=== PATIENT | male | born 1935 | race Caucasian/White ===

== ENCOUNTER 2018-03-20 12:20 | Inpatient (IN) | payer MEDICARE, OTHER ==
[2018-03-20 12:27] VITALS: BMI 26.6
[2018-03-20] MEDS ORDERED: PANTOPRAZOLE SODIUM 40 MG in SODIUM CHLORIDE 100 ML IVPB ONE (12:57)
[2018-03-20] MEDS ORDERED: ONDANSETRON 4 MG/2 ML VIAL IVPUSH ONE (12:57)
[2018-03-20] MEDS ORDERED: ONDANSETRON 4 MG/2 ML VIAL ONE (13:12)
[2018-03-20] MEDS ORDERED: PANTOPRAZOLE SODIUM 40 MG/100 ML BAG IVPB ONE (13:12)
[2018-03-20 13:32] LABS: URINE APPEARANCE SLCLOUDY; URINE BILIRUBIN NEGATIVE (<2.0 mg/dL); URINE GLUCOSE (UA) NEGATIVE (NEGATIVE); URINE KETONE TRACE (NEGATIVE); URINE LEUK ESTERASE 1+ (NEGATIVE); URINE NITRITE NEGATIVE (NEGATIVE); URINE PROTEIN 2+ (NEGATIVE); URINE UROBILINOGEN NEGATIVE mg/dL (0.2-1.0)
[2018-03-20 13:51] LABS: ALBUMIN 4.2 g/dl (3.4-5.0); ALK PHOS 109 U/L (45-117); ANION GAP 8 MMOL/L (8-16); BLOOD UREA NITROGEN 23 mg/dL (7-18); CALCIUM 9.1 mg/dL (8.5-10.1); CHLORIDE 92 mmol/L (98-107); CO2 29 mmol/L (21-32); CREATININE 1.3 mg/dL (0.55-1.3); GLUCOSE,RANDOM 228 mg/dL (74-106); LIPASE 72 U/L (73-393); MAGNESIUM 3.2 mg/dL (1.8-2.4); POTASSIUM 4.8 mmol/L (3.5-5.1); SGOT/AST 12 U/L (15-37); SGPT/ALT 19 U/L (13-61); SODIUM 129 mmol/L (136-145); TOT PROT 8.1 g/dl (6.4-8.2)
[2018-03-20 13:55] LABS: URINE COLOR DK YELLOW
--- NOTE | 2018-03-20 13:55 | PDOC ---
History of Present Illness - General Chief Complaint: Pain, Acute Stated Complaint: SENT BY PCP Time Seen by Provider: 03/20/18 12:43 History Source: Patient Exam Limitations: No Limitations - History of Present Illness Travel History: No Initial Comments: 03/20/18 14:16 82-year-old male presents to the emergency room for evaluation of nausea and vomiting epigastric pain since Tuesday after having a glass of tequila which he did not drink. Patient denies fever, chills, chest pain, shortness of breath but states mild weakness to to decreased by mouth intake. Patient states history of diabetes and had a glucose of 160 this morning. Timing/Duration: reports: intermittent Quality: reports: mild, cramping Abdominal Pain Onset Location: reports: RUQ, epigastric Pain Radiation: reports: no radiation Aggravating Factors: improves with: None Alleviating Factors: improves with: None Past History - Travel Traveled outside of the country in the last 30 days: No Close contact w/someone who was outside of country & ill: No - Past Medical History Allergies/Adverse Reactions: Allergies Allergy/AdvReac Type Severity Reaction Status Date / Time No Known Drug Allergies Allergy Verified 10/12/11 14:45 Home Medications: Ambulatory Orders Aspirin Coated [Ecotrin -] 81 mg PO DAILY 09/28/11 Amlodipine Besylate 5 mg PO DAILY 04/18/14 Hydroxyurea 500 mg PO DAILY 04/18/14 Linaclotide [Linzess] 72 mcg PO DAILY 03/20/18 Metformin HCl [Glucophage] 500 mg PO BID 03/20/18 Tamsulosin HCl [Flomax] 0.4 mg PO DAILY 03/20/18 Anemia: No Asthma: No Cancer: No Cardiac Disorders: No CVA: No COPD: No CHF: No Dementia: No Diabetes: Yes GI Disorders: No Disorders: No HTN: Yes Hypercholesterolemia: Yes (Not currently on medication) Liver Disease: No Seizures: No Thyroid Disease: No Other medical history: blood disorder - Surgical History Abdominal Surgery: No Appendectomy: No Cardiac Surgery: No Cholecystectomy: No Lung Surgery: No Neurologic Surgery: No Orthopedic Surgery: No - Suicide/Smoking/Psychosocial Hx Verbal consent obtained for HIV testing: No Smoking History: Unknown if ever smoked Hx Alcohol Use: Yes (OCCASIONALLY) Drug/Substance Use Hx: No Substance Use Type: None Hx Substance Use Treatment: No Patient Lives Alone: No Lives with/in: son Review of Systems - Review of Systems Able to Perform ROS?: Yes Constitutional: No: Symptoms Reported HEENTM: No: Symptoms Reported Respiratory: No: Symptoms reported Cardiac (ROS): No: Symptoms Reported ABD/GI: Yes: Nausea, Vomiting, Abdominal cramping : No: Symptoms Reported Musculoskeletal: No: Symptoms Reported Integumentary: No: Symptoms Reported Neurological: No: Symptoms reported Endocrine: No: Symptoms Reported Hematologic/Lymphatic: No: Symptoms Reported *Physical Exam - Vital Signs Last Vital Signs Temp Pulse Resp BP Pulse Ox 98.3 F 100 H 22 H 143/63 95 03/20/18 12:26 03/20/18 12:26 03/20/18 12:26 03/20/18 12:26 03/20/18 12:26 - Physical Exam General Appearance: Yes: Nourished, Appropriately Dressed. No: Apparent Distress HEENT: positive: EOMI, SHAQUIL[place], TMs Normal, Pharynx Normal. negative: Pale Conjunctivae Neck: positive: Supple Respiratory/Chest: positive: Lungs Clear, Normal Breath Sounds. negative: Respiratory Distress, Accessory Muscle Use Cardiovascular: positive: Regular Rhythm, Tachycardia. negative: Murmur Gastrointestinal/Abdominal: positive: Soft, Tenderness (epigastric and right epigastric) Musculoskeletal: negative: CVA Tenderness Extremity: positive: Normal Capillary Refill. negative: Pedal Edema Integumentary: positive: Normal Color, Warm, Moist Neurologic: positive: Motor Strength 5/5 (ambulatory) Moderate Sedation - Procedure Monitoring Vital Signs: Procedure Monitoring Vital Signs Temperature 98.3 F 03/20/18 12:26 Pulse Rate 100 H 03/20/18 12:26 Respiratory Rate 22 H 03/20/18 12:26 Blood Pressure 143/63 03/20/18 12:26 O2 Sat by Pulse Oximetry (%) 95 03/20/18 12:26 ED Treatment Course - LABORATORY CBC & Chemistry Diagram: 03/23/18 06:40 03/23/18 06:40 - Medications Given in the ED: ED Medications Discontinued Medications Generic Name Dose Route Start Last Admin Trade Name Freq PRN Reason Stop Dose Admin Pantoprazole Sodium 40 mg/ 100 mls @ 200 mls/hr 03/20/18 12:57 03/20/18 13:21 Sodium Chloride IVPB 03/20/18 13:26 200 mls/hr ONCE ONE Administration Ondansetron HCl 4 mg 03/20/18 12:57 03/20/18 13:21 Zofran Injection IVPUSH 03/20/18 12:58 4 mg ONCE ONE Administration Medical Decision Making - Medical Decision Making 03/20/18 14:05 Chief complaint: Nausea and vomiting with upper abdominal pain after drinking tequila. Sent over from Dr. Iraheta's office for evaluation. Exam: Patient tender in the epigastric and right epigastric area no CVA tenderness. Tachycardic Plan: Urine, CBC, comp, lipase, Protonix, Zofran and IV fluids 03/20/18 14:39 Laboratory Tests 03/20/18 03/20/18 13:10 13:10 Sodium 129 L Potassium 4.8 Chloride 92 L Carbon Dioxide 29 Anion Gap 8 BUN 23 H Creatinine 1.3 Creat Clearance w eGFR 52.85 Random Glucose 228 H Calcium 9.1 Magnesium 3.2 H Total Bilirubin 1.0 AST 12 L ALT 19 Alkaline Phosphatase 109 Total Protein 8.1 Albumin 4.2 Lipase 72 L Urine Protein 2+ H Urine Ketones Trace H Urine Nitrite Negative Ur Leukocyte Esterase 1+ H Urine WBC (Auto) Pending Urine RBC (Auto) Pending 03/20/18 16:03 Laboratory Tests 03/20/18 03/20/18 13:10 13:10 WBC 25.9 H Hgb 14.7 Hct 44.4 RDW 16.1 H Plt Count 652 H Absolute Neuts (auto) 22.8 H Neutrophils % 87.7 H Lymphocytes % 3.1 L Urine WBC (Auto) 5 Urine RBC (Auto) 11 Ur Epithelial Cells Rare Urine Bacteria Rare Hyaline Casts 53 03/20/18 16:10 Ordered for blood culture, lactic acid, second bag of IV fluid. Vancomycin, Zosyn, along with IV Tylenol call placed to patient's primary care Dr. Iraheta and left message. Patient will need to be admitted Ultrasound shows a complex cyst within the right hepatic lobe measuring 2.5 x 1.4 with a thin septation. Gallbladder is adequately distended measuring 7.8 cm in sagittal length with diffuse thickening of its anterior wall measuring 1.5 cm in AP dimension adjacent to the fundus and intra-luminal stone in the region of the gallbladder neck measuring 1.2 cm. There is no Pericholecystic fluid present. 03/20/18 17:39 Chest x-ray shows coarse lung changes with some questionable atelectasis findings of the medial right base. *DC/Admit/Observation/Transfer Diagnosis at time of Disposition: Cholecystitis - Discharge Dispostion Decision to Admit order: Yes - Referrals - Patient Instructions - Post Discharge Activity
[2018-03-20] MEDS ORDERED: SODIUM CHLORIDE 1,000 ML IV STA ×2 (14:00→16:05)
[2018-03-20 15:07] LABS: EPI CELLS RARE /HPF (FEW); URINE BACTERIA RARE /hpf (NONE SEEN); URINE HYALINE CAST 53 /lpf; URINE MUCUS MANY
[2018-03-20 15:38] LABS: BASO % 0.1 % (0-2.0); EOS % 0.1 % (0-4.5); HEMATOCRIT 44.4 % (35.4-49); HEMOGLOBIN 14.7 GM/dL (11.7-16.9); LYMPH % 3.1 % (8-40); MCH 27.4 pg (25.7-33.7); MCHC 33.2 g/dl (32.0-35.9); MEAN CELL VOLUME 82.6 fl (80-96); MEAN PLT VOLUME 9.1 fl (7.5-11.1); NEUT % 87.7 % (42.8-82.8); PLATELET COUNT 652 K/MM3 (134-434); RBC 5.38 M/mm3 (4.00-5.60); RDW 16.1 % (11.9-15.9); WHITE BLOOD COUNT 25.9 K/mm3 (4.0-10.0)
[2018-03-20] MEDS ORDERED: VANCOMYCIN 1 GM in D5W (PRE-DOCKED) 1,000 MG/250 ML IVPB ONE (16:05)
[2018-03-20] MEDS ORDERED: ACETAMINOPHEN 1000 MG/100 ML VIAL (NON FORMULARY) IVPB ONE (16:09)
[2018-03-20] MEDS ORDERED: PIPERACILLIN/TAZOB 3.375 GM 3.375 GM in DEXTROSE 5%-WATER - 50 ML IVPB SCH (16:15)
[2018-03-20 16:31] LABS: VENOUS PC02 49.4 mmHg (38-52); VENOUS PH 7.37 (7.32-7.42); VENOUS PO2 20.5 mmHg (28-48)
[2018-03-20 16:31] LABS: PLATELET ESTIMATE INCREASED
[2018-03-20] MEDS ORDERED: PIPERACILLIN/TAZOB 3.375 GM 3.375 GM/50 ML BAG IVPB ONE (16:32)
[2018-03-20] MEDS ORDERED: VANCOMYCIN 1 GRAM (PRE-DOCKED) 1,000 MG/250 ML BAG IVPB ONE (16:32)
[2018-03-20] MEDS ORDERED: ACETAMINOPHEN INJECTION 100 ML IVPB ONE (16:32)
[2018-03-20 16:43] LABS: INR 1.23 (0.83-1.09); PROTHROMBIN TIME (PATIENT) 14.5 SEC (9.7-13.0)
[2018-03-20 16:46] LABS: ACTIVATED PTT 31.8 SECONDS (25.2-36.5)
--- NOTE | 2018-03-20 17:23 | CONSULT ---
Consult Consult Specialty:: Surgery - History of Present Illness Chief Complaint: abdominal pain History of Present Illness: 82-year-old male presents to the emergency room for evaluation of nausea and vomiting epigastric pain since Tuesday after having a glass of tequila. Patient denies fever, chills, chest pain, shortness of breath but states mild weakness to to decreased by mouth intake. Patient states he has history of diabetes and had a glucose of 160 this morning. Patient also states he has history of intermittent RUQ pain. - History Source History Provided By: Patient Limitations to Obtaining History: No Limitations - Past Medical History Cardio/Vascular: Yes: HTN - Alcohol/Substance Use Hx Alcohol Use: Yes (OCCASIONALLY) - Smoking History Smoking history: Unknown if ever smoked Home Medications - Allergies Allergies/Adverse Reactions: Allergies Allergy/AdvReac Type Severity Reaction Status Date / Time No Known Drug Allergies Allergy Verified 10/12/11 14:45 - Home Medications Home Medications: Ambulatory Orders Aspirin Coated [Ecotrin -] 81 mg PO DAILY 09/28/11 Amlodipine Besylate 5 mg PO DAILY 04/18/14 Hydroxyurea 500 mg PO DAILY 04/18/14 Linaclotide [Linzess] 72 mcg PO DAILY 03/20/18 Metformin HCl [Glucophage] 500 mg PO BID 03/20/18 Tamsulosin HCl [Flomax] 0.4 mg PO DAILY 03/20/18 Review of Systems - Review of Systems Cardiovascular: reports: No Symptoms Respiratory: reports: No Symptoms Gastrointestinal: reports: Abdominal Pain, Nausea Musculoskeletal: reports: No Symptoms Physical Exam Vital Signs: Vital Signs Temperature 99.6 F 03/20/18 16:41 Pulse Rate 94 H 03/20/18 16:41 Respiratory Rate 18 03/20/18 16:41 Blood Pressure 127/63 03/20/18 16:41 O2 Sat by Pulse Oximetry (%) 96 03/20/18 16:41 Constitutional: Yes: Well Nourished, No Distress Eyes: Yes: Conjunctiva Clear HENT: Yes: Normocephalic Neck: Yes: Supple Cardiovascular: Yes: Regular Rate and Rhythm Respiratory: Yes: CTA Bilaterally Gastrointestinal: Yes: Soft, Tenderness (RUQ) ...Rectal Exam: Yes: Deferred Extremities: Yes: WNL Neurological: Yes: Alert, Oriented Labs: CBC, BMP 03/20/18 13:10 03/20/18 13:10 Imaging - Results Ultrasound: Report Reviewed, Image Reviewed Problem List - Problems (1) Cholecystitis Assessment/Plan: LAPAROSCOPIC CHOLECYSTECTOMY in am Continue antibiotics Bowel rest DVT, GI prophylaxis Code(s): K81.9 - CHOLECYSTITIS, UNSPECIFIED
[2018-03-20] MEDS ORDERED: SODIUM CHLORIDE 1,000 ML IV SCH (18:45)
[2018-03-20] MEDS ORDERED: ACETAMINOPHEN 325 MG TABLET (FP) PO ONE (22:41)
[2018-03-20] MEDS ORDERED: ACETAMINOPHEN 325 MG TABLET (FP) ONE (22:51)
--- NOTE | 2018-03-21 02:22 | HP ---
Admitting History and Physical - Admission History of Present Illness: Pt is a 82 y/o male w/ PMH significant for HTN, diabetes and BPH. Pt presented to the ER bc of nausea, vomiting and epigastric pain since Tuesday. The abdominal pain is localized to epigastrium and RUQ. Pt does say that the pain is worse after eating. Pt denies any fever/chills. In the ER pt had abdokminal US wc showed acute cholecystitis. History Source: Patient - Past Medical History Cardiovascular: Yes: HTN Endocrine: Yes: Diabetes Mellitus - Smoking History Smoking history: Unknown if ever smoked Have you smoked in the past 12 months: No - Alcohol/Substance Use Hx Alcohol Use: Yes (OCCASIONALLY) Home Medications - Allergies Allergies/Adverse Reactions: Allergies Allergy/AdvReac Type Severity Reaction Status Date / Time No Known Drug Allergies Allergy Verified 10/12/11 14:45 - Home Medications Home Medications: Ambulatory Orders Aspirin Coated [Ecotrin -] 81 mg PO DAILY 09/28/11 Amlodipine Besylate 5 mg PO DAILY 04/18/14 Hydroxyurea 500 mg PO DAILY 04/18/14 Linaclotide [Linzess] 72 mcg PO DAILY 03/20/18 Metformin HCl [Glucophage] 500 mg PO BID 03/20/18 Tamsulosin HCl [Flomax] 0.4 mg PO DAILY 03/20/18 Family Disease History - Family Disease History Family History: Unremarkable Review of Systems - Review of Systems Constitutional: reports: Loss of Appetite, Weakness Neck: reports: No Symptoms Cardiovascular: reports: No Symptoms Respiratory: reports: No Symptoms Gastrointestinal: reports: Abdominal Pain, Nausea, Vomiting Physical Examination Vital Signs: Vital Signs Temperature 100.5 F H 03/20/18 22:46 Pulse Rate 69 03/20/18 22:46 Respiratory Rate 18 03/20/18 22:46 Blood Pressure 133/78 03/20/18 22:46 O2 Sat by Pulse Oximetry (%) 96 03/20/18 22:46 Constitutional: Yes: No Distress HENT: Yes: WNL Neck: Yes: WNL, Supple Cardiovascular: Yes: WNL, Regular Rate and Rhythm Respiratory: Yes: WNL, Regular, CTA Bilaterally Gastrointestinal: Yes: Other ((+) RUQ tenderness on palpation) Musculoskeletal: Yes: WNL Extremities: Yes: WNL Edema: No Neurological: Yes: WNL, Alert, Oriented ...Motor Strength: WNL Labs: CBC, BMP 03/20/18 13:10 03/20/18 13:10 Problem List - Problems (1) Abdominal pain Assessment/Plan: Due to acute cholecystitis Surgical consult No medical contraindication ofr surgery Cont IVF/NPO Cont IV zosyn/vanco Follow BC Monitor WBC ID consult Will also get cardio consult for cardiac clearance Code(s): R10.9 - UNSPECIFIED ABDOMINAL PAIN (2) Diabetes Assessment/Plan: Cont sliding scale w/ coverage Code(s): E11.9 - TYPE 2 DIABETES MELLITUS WITHOUT COMPLICATIONS (3) HTN (hypertension) Assessment/Plan: Cont norvasc Check echo Code(s): I10 - ESSENTIAL (PRIMARY) HYPERTENSION (4) BPH (benign prostatic hyperplasia) Assessment/Plan: Cont flomax Code(s): N40.0 - BENIGN PROSTATIC HYPERPLASIA WITHOUT LOWER URINRY TRACT SYMP
[2018-03-21] MEDS ORDERED: DEXTROSE 5%-0.45% SALINE 1,000 ML IV SCH (02:30)
[2018-03-21] MEDS ORDERED: MORPHINE SULFATE 2 MG/ML VIAL IVPUSH PRN ×2 (02:33→18:25)
[2018-03-21] MEDS ORDERED: ONDANSETRON 4 MG/2 ML VIAL IVPUSH PRN ×3 (02:34→18:25)
[2018-03-21] MEDS ORDERED: INSULIN (NOVOLOG) ASPART 100 UNITS/ML 10ML VIAL ONE (06:05)
[2018-03-21] MEDS: INSULIN SLIDING SCALE (NOVOLOG) 1 VIAL SQ SCH ×4 (06:37→22:44)
[2018-03-21] MEDS ORDERED: PT OWN MED DRAWER 7, Y5N ONE (07:38)
[2018-03-21 07:48] LABS: BASO % 0.1 % (0-2.0); EOS % 0.1 % (0-4.5); HEMATOCRIT 37.5 % (35.4-49); HEMOGLOBIN 12.3 GM/dL (11.7-16.9); LYMPH % 3.7 % (8-40); MCH 27.2 pg (25.7-33.7); MCHC 32.9 g/dl (32.0-35.9); MEAN CELL VOLUME 82.6 fl (80-96); MEAN PLT VOLUME 8.7 fl (7.5-11.1); MONO % 9.8 % (3.8-10.2); NEUT % 86.3 % (42.8-82.8); PLATELET COUNT 541 K/MM3 (134-434); RBC 4.54 M/mm3 (4.00-5.60); RDW 16.6 % (11.9-15.9); WHITE BLOOD COUNT 21.3 K/mm3 (4.0-10.0)
[2018-03-21 08:20] LABS: ALK PHOS 77 U/L (45-117); ANION GAP 8 MMOL/L (8-16); BILIRUBIN,TOTAL 0.7 mg/dL (0.2-1); BLOOD UREA NITROGEN 14 mg/dL (7-18); CALCIUM 8.3 mg/dL (8.5-10.1); CHLORIDE 104 mmol/L (98-107); CO2 25 mmol/L (21-32); CREATININE 0.8 mg/dL (0.55-1.3); GLUCOSE,RANDOM 167 mg/dL (74-106); POTASSIUM 4.5 mmol/L (3.5-5.1); SGOT/AST 7 U/L (15-37); SGPT/ALT 13 U/L (13-61); SODIUM 137 mmol/L (136-145)
[2018-03-21] MEDS ORDERED: TAMSULOSIN HCL 0.4 MG CAP PO SCH (08:30)
--- NOTE | 2018-03-21 09:11 | CON.CARD ---
Consult Consult Specialty:: Cardiology Referred by:: Dr. Zamora Reason for Consultation:: Preop Cardiac Evaluation - History of Present Illness Chief Complaint: Fever and abdominal pain History of Present Illness: 82M with PMHx HTN, DM, Thrombocytosis, CAD with remote hx of PCI as per my office colleague's office notes presents to ER with abdominal pain, fever, leukocytosis. Abdominal US showed cholelithiasis and gallbladder thickening felt to be c/w cholecystitis. Seen by general surgery, planned for lap sonia today. On cardiac ROS, denies exertional CP, palpitations or syncope. No CHF sx. Has chronic exertional dyspnea which has not changed in last year. Able to walk 4- 5 blocks without difficulty and able to walk up one flight of stairs. - History Source History Provided By: Patient, Medical Record - Past Medical History Cardio/Vascular: Yes: HTN Pulmonary: No: Asthma, Bronchitis, Cancer, COPD, O2 Dependent, Pneumonia, Previously Intubated, Pulmonary Embolus, Pulmonary Fibrosis, Sleep Apnea, Other Gastrointestinal: No: Ascites, Cancer, Constipation, Crohn's Disease, Diverticulitis, Diverticulosis, Esophageal Varices, Gastritis, GERD, GI Bleed, Hemorrhoids, Hiatal Hernia, Inflamatory Bowel Disease, Irritable Bowel Disease, Pancreatitis, Peptic Ulcer Disease, Ulcerative Colitis, Other Hepatobiliary: No: Cirrhosis, Cholelithiasis, Cholecystitis, Choledocholithiasis , Hepatitis A, Hepatitis B, Hepatitis C, Other Renal/: No: Renal Failure, Renal Inusuff, BPH, Cancer, Hematuria, Hemodialysis , Neurogenic Bladder, Renal Calculi, UTI, Other Heme/Onc: Yes: Other (Thrombocytosis. ) Infectious Disease: No: AIDS, C-Diff, Herpes Zoster, HIV, MRSA, STD's, Tuberculosis, VREF, Other Psych: No: Addictions, Anxiety, Bipolar, Depression, Panic, Psychosis, Schizophrenia, Other Musculoskeletal: No: Bursitis, Chronic low back pain, Hemiparesis, Hemiplegia, Osteoarthritis, Paraplegia, Other ENT: No: Allergic Rhinitis, Sinusitis, Other Endocrine: Yes: Diabetes Mellitus - Alcohol/Substance Use Hx Alcohol Use: Yes (OCCASIONALLY) - Smoking History Smoking history: Unknown if ever smoked Have you smoked in the past 12 months: No - Social History History of Recent Travel: No Home Medications - Allergies Allergies/Adverse Reactions: Allergies Allergy/AdvReac Type Severity Reaction Status Date / Time No Known Drug Allergies Allergy Verified 10/12/11 14:45 - Home Medications Home Medications: Ambulatory Orders Aspirin Coated [Ecotrin -] 81 mg PO DAILY 09/28/11 Amlodipine Besylate 5 mg PO DAILY 04/18/14 Hydroxyurea 500 mg PO DAILY 04/18/14 Linaclotide [Linzess] 72 mcg PO DAILY 03/20/18 Metformin HCl [Glucophage] 500 mg PO BID 03/20/18 Tamsulosin HCl [Flomax] 0.4 mg PO DAILY 03/20/18 Family Disease History - Family Disease History Family History: Unremarkable (no early CAD or SCD) Review of Systems Findings/Remarks: See HPI - Review of Systems Constitutional: reports: Fever Eyes: denies: No Symptoms, Blind Spots, Blurred Vision, Double Vision, Eye Pain , Floaters, Photophobia, Recent Change in Vision, Other HENT: denies: No Symptoms, Difficult Swallowing, Ear Discharge, Ear Pain, Epistaxis, Gingival Bleeding, Hearing Loss, Mouth Swelling, Nasal Congestion, Ocular Prosthesis, Throat Pain, Toothache, Ringing in Ears, Other Neck: denies: No Symptoms, Decreased ROM, Lumps, Pain on Movement, Stiffness, Swollen Glands, Tenderness, Other Cardiovascular: denies: No Symptoms, Chest Pain, Edema, Palpitations, Shortness of Breath, Other Respiratory: denies: No Symptoms, Cough, Exercise Intolerance, Hemoptysis, Orthopnea, PND, Snoring, SOB, SOB on Exertion, Wheezing, Other Gastrointestinal: reports: Abdominal Pain Genitourinary: denies: No Symptoms, Burning, Discharge, Dysuria, Flank Pain, Frequency, Hematuria, Incontinence, Lesions, Menses, Pain, Testicular Mass, Testicular Pain, Testicular Swelling, Urgency, Vaginal Bleeding, Other Breasts: denies: No Symptoms Reported, See HPI, Breast Implants, Discharge from Nipple, Lumps, Pain, Skin Changes, Other Musculoskeletal: denies: No Symptoms, Back Pain, Crepitus, Decreased ROM, Extremity Pain, Joint Pain, Joint Swelling, Muscle Pain, Muscle Cramps, Muscle Weakness, Other Integumentary: denies: No Symptoms, Blister, Bruising, Change in Color, Eczema, Erythema, Incision, Lesions, Lump, Pallor, Pruritis, Rash, Wound, Other Neurological: denies: No Symptoms, Change in LOC, Change in Speech, Confusion, Dizziness, Headache, Incoordination, Numbness, Parasthesia, Pre-Existing Deficit , Seizure, Syncope, Tremors, Unsteady Gait, Weakness, Other Endocrine: denies: No Symptoms, Excessive Sweating, Flushing, Increased Hunger, Increased Thirst, Intolerance to Cold, Intolerance to Heat, Unexplained Weight Gain, Unexplained Weight Loss, Other Hematology/Lymphatic: denies: No Symptoms, Easily Bruised, Excessive Bleeding, Swollen Glands, Other Psychiatric: denies: No Symptoms, Altered Sleep Pattern, Anxiety, Depression, Hallucinations, Panic, Paranoia, Suicidal, Other - Risk Factors Known Risk Factors: Yes: Diabetes Mellitus, Hypertension, Other (Chronic thrombocytosis/ myeloproliferative disorder on Hydrea) Vital Signs: Vital Signs Temperature 98.7 F 03/21/18 06:00 Pulse Rate 83 03/21/18 06:00 Respiratory Rate 18 03/21/18 06:00 Blood Pressure 118/57 L 03/21/18 06:00 O2 Sat by Pulse Oximetry (%) 96 03/21/18 02:16 Constitutional: Yes: No Distress Eyes: Yes: Conjunctiva Clear HENT: Yes: Atraumatic Respiratory: Yes: CTA Bilaterally Gastrointestinal: Yes: Soft Cardiovascular: Yes: Regular Rate and Rhythm JVD: No Carotid Bruit: No PMI: Non-Displaced Heart Sounds: Yes: S1, S2 (RRR, no murmurs) Edema: No Peripheral Pulses WNL: Yes Neurological: Yes: Alert, Oriented ...Motor Strength: WNL - Other Data Labs, Other Data: CBC, BMP 03/21/18 07:10 03/21/18 07:10 INR, PTT INR 1.23 (0.83-1.09) H 03/20/18 16:00 Troponin, BNP 03/20/18 16:20 Troponin I < 0.02 Troponin, BNP 03/20/18 16:20 Troponin I < 0.02 Microbiology Laboratory Tests 03/20/18 03/20/18 03/20/18 13:10 13:10 13:10 WBC 25.9 H Hgb 14.7 Hct 44.4 Plt Count 652 H Absolute Neuts (auto) 22.8 H Sodium Potassium BUN Creatinine POC Glucometer Calcium AST ALT Alkaline Phosphatase 109 Troponin I Lipase 72 L Urine Color Dk yellow Urine Appearance Slcloudy Urine Protein 2+ H Urine Glucose (UA) Negative Urine Ketones Trace H Urine Blood Negative Urine Nitrite Negative Urine Bilirubin Negative Urine Urobilinogen Negative Ur Leukocyte Esterase 1+ H Urine WBC (Auto) 5 Urine RBC (Auto) 11 03/20/18 03/21/18 03/21/18 16:20 06:33 07:10 WBC 21.3 H Hgb 12.3 Hct 37.5 D Plt Count 541 H Absolute Neuts (auto) 18.4 H Sodium Potassium BUN Creatinine POC Glucometer 159 Calcium AST ALT Alkaline Phosphatase Troponin I < 0.02 Lipase Urine Color Urine Appearance Urine Protein Urine Glucose (UA) Urine Ketones Urine Blood Urine Nitrite Urine Bilirubin Urine Urobilinogen Ur Leukocyte Esterase Urine WBC (Auto) Urine RBC (Auto) 03/21/18 07:10 WBC Hgb Hct Plt Count Absolute Neuts (auto) Sodium 137 Potassium 4.5 BUN 14 Creatinine 0.8 POC Glucometer Calcium 8.3 L AST 7 L ALT 13 Alkaline Phosphatase 77 Troponin I Lipase Urine Color Urine Appearance Urine Protein Urine Glucose (UA) Urine Ketones Urine Blood Urine Nitrite Urine Bilirubin Urine Urobilinogen Ur Leukocyte Esterase Urine WBC (Auto) Urine RBC (Auto) NSR 90bpm, no Q waves and no significant ECG changes Echo: Other (June 2016 (office): Mild MR, otherwise normal) Stress Echo: Other (ETT07/2015: 7 Minutes Jadiel- negative ETT. Nuclear stress 2013 7 minutes, nl perfusion, EF 54%) Ejection Fraction %: LVEF > or = 40 % Imaging - Results Chest X-ray: Report Reviewed, Image Reviewed Ultrasound: Report Reviewed EKG: Image Reviewed Problem List - Problems (1) Diabetes Code(s): E11.9 - TYPE 2 DIABETES MELLITUS WITHOUT COMPLICATIONS Qualifiers: Diabetes mellitus type: type 2 Diabetes mellitus complication status: without complication (2) Cholecystitis Code(s): K81.9 - CHOLECYSTITIS, UNSPECIFIED (3) Thrombocytosis Code(s): D47.3 - ESSENTIAL (HEMORRHAGIC) THROMBOCYTHEMIA (4) ASHD (arteriosclerotic heart disease) Code(s): I25.10 - ATHSCL HEART DISEASE OF [place] CORONARY ARTERY W/O ANG PCTRS (5) Abdominal pain Code(s): R10.9 - UNSPECIFIED ABDOMINAL PAIN Qualifiers: Abdominal location: right upper quadrant Qualified Code(s): R10.11 - Right upper quadrant pain (6) HTN (hypertension) Code(s): I10 - ESSENTIAL (PRIMARY) HYPERTENSION Qualifiers: Hypertension type: essential hypertension Qualified Code(s): I10 - Essential (primary) hypertension Assessment/Plan IMP: Abdominal pain, fever, imaging c/w acute cholecystitis DM Chronic thrombocytosis ASHD HTN REC: There are no absolute cardiac contraindications to lap sonia if recommended by surgery as this would be considered urgent in a patient with DM and cholecystitis. There is no aortic stenosis, no signs / sx of heart failure, he is in NSR with normal ECG and has no anginal symptoms at this time. May proceed to surgery without further delay for diagnostic testing, which will not change above recommendations. Advise: 1. Continue usual BP meds which may be taken with sip of water 2. Will need DVT prophylaxis and likely resumption of ASA and Hydrea post op with his hx of thrombocytosis. Will follow. Thank you.
[2018-03-21 09:54] LABS: ANISOCYTOSIS 0; MACROCYTOSIS 0; PLATELET ESTIMATE INCREASED
[2018-03-21] MEDS ORDERED: amLODIPine BESYLATE 5 MG TABLET (FP) PO SCH (10:00)
[2018-03-21] MEDS ORDERED: PIPERACILLIN/TAZOB 3.375 GM 3.375 GM in DEXTROSE 5%-WATER - 50 ML IVPB SCH ×2 (10:00→18:00)
[2018-03-21] MEDS ORDERED: VANCOMYCIN 1 GM in D5W (PRE-DOCKED) 1,000 MG/250 ML IVPB SCH ×2 (10:00→22:00)
[2018-03-21] MEDS ORDERED: DEXTROSE 5%-WATER - 50 ML IVPB ONE (10:15)
[2018-03-21] MEDS ORDERED: PIPERACILLIN/TAZOBACTAM 3.375 GM VIAL IVPB ONE (10:15)
--- NOTE | 2018-03-21 12:03 | ECHO ---
Name: GABRIEL MORAN Exam:Adult Echocardiogram Study Date: 03/21/2018 09:11 AM Age: 82 yrs Reason For Study: HTN MEDICAL CLEARANCE Height: 65 in Weight: 159 lb BSA: 1.8 m2 MMode/2D Measurements & Calculations IVSd: 0.92 cm Ao root diam: 3.4 cm LVIDd: 5.2 cm LA dimension: 3.5 cm LVIDs: 3.4 cm LVPWd: 0.86 cm EDV(Teich): 131.4 ml LVOT diam: 2.2 cm ESV(Teich): 48.6 ml TAPSE: 2.8 cm Doppler Measurements & Calculations MV E max marianne: 60.2 cm/sec Ao V2 max: 199.8 cm/sec MV A max marianne: 91.8 cm/sec Ao max P.0 mmHg MV E/A: 0.66 Ao V2 mean: 134.5 cm/sec MV dec time: 0.15 sec Ao mean P.0 mmHg Ao V2 VTI: 37.9 cm JAMIE(V,D): 2.6 cm2 LV V1 max P.3 mmHg MR max marianne: 259.0 cm/sec LV V1 max: 134.8 cm/sec MR max P.8 mmHg TR max marianne: 286.7 cm/sec PI end-d marianne: 126.2 cm/sec TR max P.0 mmHg Procedure A two-dimensional transthoracic echocardiogram with color flow and Doppler was performed. The patient was in normal sinus rhythm during the exam. Left Ventricle Left ventricular systolic function is normal. Ejection Fraction = 55-60%. E/A reversal consistent wit h but not diagnostic of poor LV compliance. Right Ventricle The right ventricle is grossly normal size. The right ventricular systolic function is grossly normal . Atria The left atrial size is normal. Right atrial size is normal. Mitral Valve There is mild mitral annular calcification. There is trace mitral regurgitation. Tricuspid Valve The tricuspid valve is normal. There is mild to moderate tricuspid regurgitation. Right ventricular s ystolic pressure is elevated at 30-40mmHg. Aortic Valve There is mild aortic sclerosis.;. The aortic valve is trileaflet. The aortic valve opens well. No hemodynamically significant valvular aortic stenosis. No aortic regurgitation is present. Pulmonic Valve The pulmonic valve is not well seen, but is grossly normal. Trace pulmonic valvular regurgitation. Great Vessels The aortic root is normal size. Pericardium/Pleura There is no pericardial effusion. Interpretation Summary Left ventricular systolic function is normal. E/A reversal consistent with but not diagnostic of poor LV compliance The right ventricular systolic function is grossly normal. There is mild mitral annular calcification. There is trace mitral regurgitation. There is mild to moderate tricuspid regurgitation. Right ventricular systolic pressure is elevated at 30-40mmHg. There is mild aortic sclerosis.; No hemodynamically significant valvular aortic stenosis. Trace pulmonic valvular regurgitation. There is no pericardial effusion. MD Lamont Hayes 03/21/2018 12:02 PM
--- NOTE | 2018-03-21 12:13 | EKG ---
Test Reason : Blood Pressure : / mmHG Vent. Rate : 089 BPM Atrial Rate : 089 BPM P-R Int : 156 ms QRS Dur : 088 ms QT Int : 312 ms P-R-T Axes : 062 -26 015 degrees QTc Int : 379 ms NORMAL SINUS RHYTHM NORMAL ECG Confirmed by MD ROXANA, GRABIEL ([id number]) on 03/21/2018 12:13:41 PM Referred By: ROSLYN LANTIGUA,[facility] Confirmed By:GRABIEL SCHMIDT MD
--- NOTE | 2018-03-21 12:17 | EKG ---
Test Reason : Blood Pressure : / mmHG Vent. Rate : 090 BPM Atrial Rate : 090 BPM P-R Int : 162 ms QRS Dur : 084 ms QT Int : 336 ms P-R-T Axes : 053 -13 044 degrees QTc Int : 411 ms NORMAL SINUS RHYTHM NORMAL ECG Confirmed by MD ROXANA, GRABIEL ([id number]) on 03/21/2018 12:16:53 PM Referred By: Confirmed By:GRABIEL SCHMIDT MD
--- NOTE | 2018-03-21 13:50 | CON.ID ---
Consult Consult Specialty:: infectious diseases Referred by:: Reason for Consultation:: abd pain - History of Present Illness Chief Complaint: abd pain ruq History of Present Illness: 82 y/o male w/ PMH significant for HTN, diabetes and BPH. Pt presented to the ER bc of nausea, vomiting and epigastric pain since Tuesday. The abdominal pain is localized to epigastrium and RUQ. Pt does say that the pain is worse after eating. Pt denies any fever/chills. In the ER pt had abdominal US wc showed acute cholecystitis. patient was seen by surgery and patient is being taken to or for choleycystectomy other [place] patient is doing well though he does c/o of pain in the abdomen - History Source History Provided By: Patient, Family Member Limitations to Obtaining History: Language Barrier - Past Medical History Cardio/Vascular: Yes: HTN Pulmonary: No: Asthma, Bronchitis, Cancer, COPD, O2 Dependent, Pneumonia, Previously Intubated, Pulmonary Embolus, Pulmonary Fibrosis, Sleep Apnea, Other Gastrointestinal: No: Ascites, Cancer, Constipation, Crohn's Disease, Diverticulitis, Diverticulosis, Esophageal Varices, Gastritis, GERD, GI Bleed, Hemorrhoids, Hiatal Hernia, Inflamatory Bowel Disease, Irritable Bowel Disease, Pancreatitis, Peptic Ulcer Disease, Ulcerative Colitis, Other Hepatobiliary: No: Cirrhosis, Cholelithiasis, Cholecystitis, Choledocholithiasis , Hepatitis A, Hepatitis B, Hepatitis C, Other Renal/: No: Renal Failure, Renal Inusuff, BPH, Cancer, Hematuria, Hemodialysis , Neurogenic Bladder, Renal Calculi, UTI, Other Infectious Disease: No: AIDS, C-Diff, Herpes Zoster, HIV, MRSA, STD's, Tuberculosis, VREF, Other Psych: No: Addictions, Anxiety, Bipolar, Depression, Panic, Psychosis, Schizophrenia, Other Musculoskeletal: No: Bursitis, Chronic low back pain, Hemiparesis, Hemiplegia, Osteoarthritis, Paraplegia, Other ENT: No: Allergic Rhinitis, Sinusitis, Other Endocrine: Yes: Diabetes Mellitus - Alcohol/Substance Use Hx Alcohol Use: Yes (OCCASIONALLY) - Smoking History Smoking history: Unknown if ever smoked Have you smoked in the past 12 months: No - Social History History of Recent Travel: No Home Medications - Allergies Allergies/Adverse Reactions: Allergies Allergy/AdvReac Type Severity Reaction Status Date / Time No Known Drug Allergies Allergy Verified 10/12/11 14:45 - Home Medications Home Medications: Ambulatory Orders RX: Aspirin Coated [Ecotrin -] 81 mg PO DAILY 09/28/11 Amlodipine Besylate 5 mg PO DAILY 04/18/14 Hydroxyurea 500 mg PO DAILY 04/18/14 Linaclotide [Linzess] 72 mcg PO DAILY 03/20/18 Metformin HCl [Glucophage] 500 mg PO BID 03/20/18 Tamsulosin HCl [Flomax] 0.4 mg PO DAILY 03/20/18 Review of Systems - Review of Systems Constitutional: reports: No Symptoms Eyes: reports: No Symptoms HENT: reports: No Symptoms Neck: reports: No Symptoms Cardiovascular: reports: No Symptoms Respiratory: reports: No Symptoms Gastrointestinal: reports: Abdominal Pain (ruq) Musculoskeletal: reports: No Symptoms Integumentary: reports: No Symptoms Neurological: reports: No Symptoms Endocrine: reports: No Symptoms Hematology/Lymphatic: reports: No Symptoms Psychiatric: reports: No Symptoms Physical Exam Vital Signs: Vital Signs Temperature 98.7 F 03/21/18 06:00 Pulse Rate 83 03/21/18 06:00 Respiratory Rate 18 03/21/18 06:00 Blood Pressure 118/57 L 03/21/18 06:00 O2 Sat by Pulse Oximetry (%) 96 03/21/18 02:16 Constitutional: Yes: Well Nourished, No Distress, Calm, Obese Cardiovascular: Yes: Regular Rate and Rhythm Respiratory: Yes: Regular, CTA Bilaterally Gastrointestinal: Yes: Soft, Hypoactive Bowel Sounds, Tenderness Musculoskeletal: Yes: WNL Extremities: Yes: WNL Neurological: Yes: Alert, Oriented Psychiatric: Yes: Alert, Oriented Labs: CBC, BMP 03/21/18 07:10 03/21/18 07:10 Imaging - Results Chest X-ray: Report Reviewed, Image Reviewed Ultrasound: Report Reviewed, Image Reviewed Assessment/Plan Problem List - Problems (1) Abdominal pain Code(s): R10.9 - UNSPECIFIED ABDOMINAL PAIN Qualifiers: Abdominal location: right upper quadrant Qualified Code(s): R10.11 - Right upper quadrant pain (2) Diabetes Code(s): E11.9 - TYPE 2 DIABETES MELLITUS WITHOUT COMPLICATIONS Qualifiers: Diabetes mellitus type: type 2 Diabetes mellitus complication status: without complication (3) HTN (hypertension) Code(s): I10 - ESSENTIAL (PRIMARY) HYPERTENSION Qualifiers: Hypertension type: essential hypertension Qualified Code(s): I10 - Essential (primary) hypertension (4) BPH (benign prostatic hyperplasia) Code(s): N40.0 - BENIGN PROSTATIC HYPERPLASIA WITHOUT LOWER URINRY TRACT SYMP (5) S/P laparoscopic cholecystectomy Code(s): Z90.49 - ACQUIRED ABSENCE OF OTHER SPECIFIED PARTS OF DIGESTIVE TRACT plan will start patient on abx await for surgery once surgery is done will discuss the findings with surgeon rest as per the team
[2018-03-21] MEDS ORDERED: LACTATED RINGERS SOLUTION 1,000 ML IV SCH (14:30)
[2018-03-21] MEDS ORDERED: ROCURONIUM BROMIDE 50 MG/5 ML VIAL ONE (14:48)
[2018-03-21] MEDS ORDERED: PROPOFOL 20 ML ONE (14:48)
[2018-03-21] MEDS ORDERED: DESFLURANE GAS 240 ML BOTTLE IH ONE (15:11)
[2018-03-21] MEDS ORDERED: DEXAMETHASONE SOD PHOSPHATE 4 MG/1 ML VIAL ONE (15:22)
[2018-03-21] MEDS ORDERED: ceFAZolin SODIUM 1 GM VIAL ONE (15:22)
[2018-03-21] MEDS ORDERED: LIDOCAINE HCL/PF 2% SDV 5ML VIAL ONE (15:22)
[2018-03-21] MEDS ORDERED: SODIUM CHLORIDE 0.9% P/F 10 ML VIAL IJ ONE (15:22)
[2018-03-21] MEDS ORDERED: AMPICILLIN NA/SULBACTAM NA 1.5 GM VIAL IVPB ONE (16:12)
[2018-03-21] MEDS ORDERED: ePHEDrine SULFATE 50 MG/1 ML AMPULE ONE (16:15)
[2018-03-21] MEDS ORDERED: BUPIVACAINE HCL/PF (5 MG/ML) 30 ML VIAL IJ ONE (16:45)
[2018-03-21] MEDS ORDERED: METOPROLOL TARTRATE 5 MG/5 ML VIAL ONE (16:47)
[2018-03-21] MEDS ORDERED: NEOSTIGMINE METHYLSULFATE 0.5 MG/ML - 10 ML MDV ONE (17:24)
[2018-03-21] MEDS ORDERED: GLYCOPYRROLATE 0.2 MG/1 ML VIAL ONE (17:24)
[2018-03-21] MEDS ORDERED: KETOROLAC TROMETHAMINE 30 MG/1 ML VIAL ONE (17:26)
--- NOTE | 2018-03-21 17:46 | OP ---
Operative Note - Note: Operative Date: 03/21/18 Pre-Operative Diagnosis: Acute cholecystitis Operation: Laparoscopic cholecystectomy Findings: Inflamed gallbladder with purulent bile on needle decompression questionable CBD stone at cbd/cystic duct junction Post-Operative Diagnosis: Other (Empyema of the gallbladder, r/o choledocholithiasis) Surgeon: Lazaro Gibbons Ranch Hand Supervisor: Chelsie Pelletier Anesthesia: General Specimens Removed: gallbladder Estimated Blood Loss (mls): 50 Drains & Tubes with Location: FAWN round drain at Trujillo's pouch Operative Report Dictated: Yes
[2018-03-21] MEDS: ACETAMINOPHEN 1000 MG/100 ML VIAL (NON FORMULARY) IVPB ONE ×2 (18:00→22:39)
[2018-03-21] MEDS ORDERED: oxyCODONE HCL 5 MG TABLET PO PRN ×2 (18:32)
--- NOTE | 2018-03-21 18:53 | OP ---
DATE OF OPERATION: 03/21/2018 PROCEDURE: Laparoscopic cholecystectomy. PREOPERATIVE DIAGNOSIS: Acute cholecystitis. POSTOPERATIVE DIAGNOSIS: Empyema of the gallbladder, rule out choledocholithiasis. SURGEON: Lazaro Gibbons MD SWING MANAGER: ALEXANDER Ortiz ANESTHESIA: General endotracheal. FINDINGS AND PROCEDURE: This is an 82-year-old male who presents with 2-day history of abdominal pain at the right upper quadrant and epigastric area associated with nausea and vomiting. Patient was initially seen at the PMD's office and was sent to the emergency department for further evaluation. On physical examination, the patient has right upper quadrant tenderness and positive Parker's sign. Preoperative ultrasound revealed a distended gallbladder with thickened lopez and 1-cm stone impacted in the gallbladder neck. The patient also had a white blood cell count of 25,000. The patient was admitted and started on antibiotics and was advised cholecystectomy. Consent was obtained after discussing the risks, benefits, and alternatives to the procedure. Patient was brought to the operating room and placed in the supine position. General endotracheal anesthesia was administered. The abdomen was prepped and draped in the usual sterile fashion. Using 0.5% Marcaine, local anesthesia was administered in the proposed incision sites. The peritoneal cavity was entered using the Optiview technique via a 5-mm umbilical incision, using a 5-mm 0-degree scope, inserted in the 5-mm optical port. Pneumoperitoneum was established. The patient was then placed in reverse Trendelenburg, left-side down position. At this point, the patient was noted to have colonic ileus and inflammatory adhesions of the omentum to the posterior abdominal wall of the right upper quadrant area. This was bluntly dissected using the 5-mm laparoscope to at least give a view of the subxiphoid region. An 11- mm port was inserted at the subxiphoid region under direct vision. Further taking down of the posterior abdominal wall adhesions was done by blunt dissection using the suction laminating machine operator instrument. Two 5-mm ports were placed at the right subcostal region ; 1 at the midclavicular line and the anterior axillary line. The omental adhesion to the gallbladder was bluntly dissected using the suction irrigation instrument and a distended, erythematous, inflamed gallbladder was exposed. Needle aspiration to decompress the gallbladder was done. About 50 mL of purulent fluid was aspirated. This was sent to the lab for culture and sensitivity studies. The gallbladder fundus was grasped and retracted superiorly and the infundibulum was grasped and retracted laterally. The edematous visceral peritoneum of the triangle of Calot was scored using the hook dissector connected to Bovie cautery towards the gallbladder bed on both sides of the gallbladder. Further dissection using blunt dissection using the peanut dissector was done to expose the cystic duct and the cystic artery. Careful dissection of the inflammatory fibrotic tissue was done using hook dissector connected to Bovie cautery to skeletonize the cystic duct. The cystic duct was initially clipped and was noted to be rigid. A questionable, firm, intraluminal structure, which was presumed to be a common duct stone lodged in the junction between the cystic duct and the common bile duct was noted. An attempt to dislodge the structure proved to be unsuccessful. It was then decided to clip the cystic duct at 4 points followed by transection, leaving 3 clips at the cystic duct stump. The cystic artery was likewise clipped at 3 points followed by transection, leaving 2 clips at the cystic artery stump. The gallbladder was dissected from its bed in an antegrade fashion using the hook dissector connected to monopolar cautery. This was then placed in an endobag and extracted via the subxiphoid incision, which was lengthened to accommodate the edematous stone. The gallbladder was palpated and was noted to have a 0.5-cm stone. In Trujillo's pouch, the right hepatic gutter was then copiously irrigated with sterile normal saline until the return was clear. A round Donovan-Hernandez drain, number 15, was deployed into Trujillo's pouch and then into the gallbladder bed and exited the anterior axillary line port. This was then connected to bulb suction. The pneumoperitoneum was evacuated and the ports were removed. The wounds were closed with Vicryl 0 suture to the fascia of the subxiphoid incision and subcuticular Biosyn 4-0 suture for the skin. The wound closure was reinforced with Dermabond. Patient was successfully extubated and transferred to the postanesthesia care unit in satisfactory condition. ESTIMATED BLOOD LOSS: About 50 mL. WOUND CLASSIFICATION: Contaminated. The patient received 1.5 g of Unasyn prior to the start of the proceduure. Diamond [id number] MTDD
--- NOTE | 2018-03-21 18:54 | SURG ---
Surgery Senior Interactive Producer Note Senior Interactive Producer: Chelsie Pelletier PA-C Date of Service: 03/21/18 Diagnosis: Acute cholecystitis Procedure: Laparoscopic cholecystectomy I was present for the entirety of the operative procedure. For further detail, please refer to operative report. Visit type - Case Type Case Type: ED Admission - Emergency Emergency Visit: Yes ED Registration Date: 03/20/18 Care time: The patient presented to the Emergency Department on the above date and was hospitalized for further evaluation of their emergent condition. - New patient This patient is new to me today: Yes Date on this admission: 03/21/18
--- NOTE | 2018-03-21 19:16 | PN ---
Progress Note, Physician History of Present Illness: Pt tolerated surgery - Current Medication List Current Medications: Active Medications Acetaminophen (Tylenol -) 650 mg PO Q6H PRN PRN Reason: FEVER Amlodipine Besylate (Norvasc -) 5 mg PO DAILY [facility] Fentanyl (Sublimaze Injection -) 25 mcg IVPUSH Q5M PRN PRN Reason: PAIN-PACU ORDER X 4 DOSES ONLY Stop: 03/22/18 04:00 Heparin Sodium (Porcine) (Heparin -) 5,000 unit SQ TID [facility] Hydroxyurea (Hydrea -) 500 mg PO DAILY [facility] Lactated Ringer's (Lactated Ringers Solution) 1,000 mls @ 100 mls/hr IV ASDIR JESSICA Piperacillin Sod/Tazobactam (Sod 3.375 gm/ Dextrose) 50 mls @ 100 mls/hr IVPB Q8H-IV JESSICA; Protocol Insulin Aspart (Novolog Vial Sliding Scale -) 1 vial SQ ACHS [facility]; Protocol Metformin HCl (Glucophage -) 500 mg PO BID [facility] Morphine Sulfate (Morphine Sulfate) 2 mg IVPUSH Q6H PRN PRN Reason: breakthrough Non-Formulary Medication (Linaclotide [Linzess]) 72 mcg PO DAILY [facility] Ondansetron HCl (Zofran Injection) 4 mg IVPUSH Q6H PRN PRN Reason: NAUSEA AND/OR VOMITING Oxycodone HCl (Roxicodone -) 5 mg PO Q4H PRN PRN Reason: PAIN LEVEL 1-5 Oxycodone HCl (Roxicodone -) 10 mg PO Q4H PRN PRN Reason: PAIN LEVEL 6-10 Tamsulosin HCl (Flomax -) 0.4 mg PO DAILY@0830 [facility] - Objective Vital Signs: Vital Signs Temperature 100.4 F H 03/21/18 17:49 Pulse Rate 88 03/21/18 17:49 Respiratory Rate 20 03/21/18 17:49 Blood Pressure 117/70 03/21/18 17:49 O2 Sat by Pulse Oximetry (%) 91 L 03/21/18 17:49 Neck: Yes: WNL, Supple Cardiovascular: Yes: WNL, Regular Rate and Rhythm Respiratory: Yes: WNL, Regular, CTA Bilaterally Gastrointestinal: Yes: Other ((+) incisional tenderness) Labs: CBC, BMP 03/21/18 07:10 03/21/18 07:10 INR, PTT INR 1.23 (0.83-1.09) H 03/20/18 16:00 Problem List - Problems (1) Abdominal pain Assessment/Plan: Due to acute cholecystitis S/P lap choley Cont IV zosyn/vanco Advance diet as per surgery Follow BC Code(s): R10.9 - UNSPECIFIED ABDOMINAL PAIN Qualifiers: Abdominal location: right upper quadrant Qualified Code(s): R10.11 - Right upper quadrant pain (2) Diabetes Assessment/Plan: Cont sliding scale w/ coverage Code(s): E11.9 - TYPE 2 DIABETES MELLITUS WITHOUT COMPLICATIONS Qualifiers: Diabetes mellitus type: type 2 Diabetes mellitus complication status: without complication (3) HTN (hypertension) Assessment/Plan: Cont norvasc Code(s): I10 - ESSENTIAL (PRIMARY) HYPERTENSION Qualifiers: Hypertension type: essential hypertension Qualified Code(s): I10 - Essential (primary) hypertension (4) BPH (benign prostatic hyperplasia) Code(s): N40.0 - BENIGN PROSTATIC HYPERPLASIA WITHOUT LOWER URINRY TRACT SYMP
[2018-03-21] MEDS: LACTATED RINGERS SOLUTION 1,000 ML IV SCH (22:39)
[2018-03-21] MEDS: HEPARIN NA (PORCINE) 5,000 UNITS/ML 1ML VIAL SQ SCH (22:40)
[2018-03-21] MEDS: metFORMIN HCL 500 MG TABLET (FP) PO SCH (22:42)
[2018-03-22] MEDS: HEPARIN NA (PORCINE) 5,000 UNITS/ML 1ML VIAL SQ SCH ×3 (06:15→22:15)
[2018-03-22] MEDS: LACTATED RINGERS SOLUTION 1,000 ML IV SCH (06:47)
[2018-03-22] MEDS: INSULIN SLIDING SCALE (NOVOLOG) 1 VIAL SQ SCH ×4 (06:48→22:15)
[2018-03-22 08:19] LABS: ALBUMIN 2.7 g/dl (3.4-5.0); ALK PHOS 273 U/L (45-117); ANION GAP 9 MMOL/L (8-16); BILIRUBIN,DIRECT 3.6 mg/dL (0.0-0.2); BILIRUBIN,TOTAL 4.1 mg/dL (0.2-1); BLOOD UREA NITROGEN 17 mg/dL (7-18); CALCIUM 8.2 mg/dL (8.5-10.1); CHLORIDE 97 mmol/L (98-107); CO2 25 mmol/L (21-32); CREATININE 0.9 mg/dL (0.55-1.3); GLUCOSE,RANDOM 252 mg/dL (74-106); POTASSIUM 5.1 mmol/L (3.5-5.1); SGOT/AST 89 U/L (15-37); SGPT/ALT 143 U/L (13-61); SODIUM 131 mmol/L (136-145); TOT PROT 5.7 g/dl (6.4-8.2)
[2018-03-22 08:41] LABS: BASO % 0.1 % (0-2.0); HEMATOCRIT 37.3 % (35.4-49); HEMOGLOBIN 12.4 GM/dL (11.7-16.9); LYMPH % 1.8 % (8-40); MCH 27.6 pg (25.7-33.7); MCHC 33.3 g/dl (32.0-35.9); MEAN CELL VOLUME 82.8 fl (80-96); MEAN PLT VOLUME 9.2 fl (7.5-11.1); MONO % 8.6 % (3.8-10.2); NEUT % 89.5 % (42.8-82.8); PLATELET COUNT 563 K/MM3 (134-434); RDW 16.3 % (11.9-15.9); WHITE BLOOD COUNT 19.8 K/mm3 (4.0-10.0)
--- NOTE | 2018-03-22 08:44 | PN ---
Progress Note, Physician Chief Complaint: tolerate lap sonia well Denies CP but c/o "phlegm in throat" - Current Medication List Current Medications: Active Medications Acetaminophen (Tylenol -) 650 mg PO Q6H PRN PRN Reason: FEVER Amlodipine Besylate (Norvasc -) 5 mg PO DAILY [facility] Aspirin (Ecotrin -) 81 mg PO DAILY [facility] Heparin Sodium (Porcine) (Heparin -) 5,000 unit SQ TID [facility] Last Admin: 03/22/18 06:15 Dose: Not Given Hydroxyurea (Hydrea -) 500 mg PO DAILY [facility] Lactated Ringer's (Lactated Ringers Solution) 1,000 mls @ 100 mls/hr IV ASDIR [facility] Last Admin: 03/22/18 06:47 Dose: 100 mls/hr Piperacillin Sod/Tazobactam (Sod 3.375 gm/ Dextrose) 50 mls @ 100 mls/hr IVPB Q8H-IV [facility]; Protocol Insulin Aspart (Novolog Vial Sliding Scale -) 1 vial SQ ACHS [facility]; Protocol Last Admin: 03/22/18 06:48 Dose: 6 units Metformin HCl (Glucophage -) 500 mg PO BID [facility] Last Admin: 03/21/18 22:42 Dose: 500 mg Morphine Sulfate (Morphine Sulfate) 2 mg IVPUSH Q6H PRN PRN Reason: breakthrough Non-Formulary Medication (Linaclotide [Linzess]) 72 mcg PO DAILY [facility] Ondansetron HCl (Zofran Injection) 4 mg IVPUSH Q6H PRN PRN Reason: NAUSEA AND/OR VOMITING Oxycodone HCl (Roxicodone -) 5 mg PO Q4H PRN PRN Reason: PAIN LEVEL 1-5 Oxycodone HCl (Roxicodone -) 10 mg PO Q4H PRN PRN Reason: PAIN LEVEL 6-10 Tamsulosin HCl (Flomax -) 0.4 mg PO DAILY@0830 [facility] - Objective Vital Signs: Vital Signs Temperature 98.6 F 03/22/18 06:00 Pulse Rate 77 03/22/18 06:00 Respiratory Rate 20 03/22/18 06:00 Blood Pressure 120/66 03/22/18 06:00 O2 Sat by Pulse Oximetry (%) 93 L 03/21/18 21:00 Constitutional: Yes: No Distress Eyes: Yes: Conjunctiva Clear Cardiovascular: Yes: Regular Rate and Rhythm Respiratory: Yes: CTA Bilaterally Gastrointestinal: Yes: Soft (no rebound or guarding.) Edema: No Neurological: Yes: Alert, Oriented ...Motor Strength: WNL Labs: CBC, BMP 03/22/18 06:30 INR, PTT INR 1.23 (0.83-1.09) H 03/20/18 16:00 Microbiology 03/20/18 16:00 Blood - Peripheral Venous Blood Culture - Preliminary NO GROWTH OBTAINED AFTER 24 HOURS, INCUBATION TO CONTINUE FOR 4 DAYS. 03/20/18 16:00 Blood - Peripheral Venous Blood Culture - Preliminary NO GROWTH OBTAINED AFTER 24 HOURS, INCUBATION TO CONTINUE FOR 4 DAYS. Laboratory Tests 03/22/18 03/22/18 06:30 06:30 WBC Pending Hgb Pending Plt Count Pending Sodium 131 L Potassium 5.1 Creatinine 0.9 AST 89 H ALT 143 H Alkaline Phosphatase 273 H Problem List - Problems (1) Diabetes Code(s): E11.9 - TYPE 2 DIABETES MELLITUS WITHOUT COMPLICATIONS Qualifiers: Diabetes mellitus type: type 2 Diabetes mellitus complication status: without complication (2) Cholecystitis Code(s): K81.9 - CHOLECYSTITIS, UNSPECIFIED (3) Thrombocytosis Code(s): D47.3 - ESSENTIAL (HEMORRHAGIC) THROMBOCYTHEMIA (4) ASHD (arteriosclerotic heart disease) Code(s): I25.10 - ATHSCL HEART DISEASE OF [place] CORONARY ARTERY W/O ANG PCTRS (5) Abdominal pain Code(s): R10.9 - UNSPECIFIED ABDOMINAL PAIN Qualifiers: Abdominal location: right upper quadrant Qualified Code(s): R10.11 - Right upper quadrant pain (6) HTN (hypertension) Code(s): I10 - ESSENTIAL (PRIMARY) HYPERTENSION Qualifiers: Hypertension type: essential hypertension Qualified Code(s): I10 - Essential (primary) hypertension Assessment/Plan IMP: Abdominal pain, fever, imaging c/w acute cholecystitis s/p lap sonia POD #1 DM Chronic thrombocytosis ASHD HTN REC: Tolerated surgery well: BP well controlled. 1. ASA and Hydrea resumed. 2. Portable CXR today 3. DVT prophylaxis
[2018-03-22] MEDS ORDERED: PIPERACILLIN/TAZOBACTAM 3.375 GM VIAL IVPB ONE ×2 (09:25→17:16)
[2018-03-22] MEDS ORDERED: DEXTROSE 5%-WATER - 50 ML IVPB ONE ×2 (09:25→17:16)
--- NOTE | 2018-03-22 09:27 | PN ---
Progress Note (short form) - Note Progress Note: surgery POD#1 laparoscopic cholecystectomy patient seen and examined at bedside. Patient is tolerating his clears but states he feels "full". He has not been OOB yet, but he is voiding and pain is controlled. He denies any chest pain, SOB , N/V, fever or chills Vital Signs Temp 98.6 F 03/22/18 06:00 Pulse 77 03/22/18 06:00 Resp 20 03/22/18 06:00 BP 120/66 03/22/18 06:00 Pulse Ox 93 L 03/21/18 21:00 Intake & Output 03/21/18 03/21/18 03/22/18 11:59 23:59 11:59 Intake Total 450 1700 1200 Output Total 250 300 330 Balance 200 1400 870 Intake: IV 450 1000 1000 D5-1/2Ns - 1,000 ml @ 75 450 mls/hr IV ASDIR JESSICA Rx#: [id number] Lactated Ringers Solution 1000 1,000 ml @ 100 mls/hr IV ASDIR JESSICA Rx#: [id number] Oral 0 700 200 Output: Drainage 50 30 Right Abdomen 30 Urine 250 200 300 Void 250 200 300 Estimated Blood Loss 50 Other: Voiding Method Toilet Urinal Urinal # Unmeasured Voids Void 1 1 1 Bowel Movement No No CBC, BMP 03/22/18 06:30 03/22/18 06:30 PE: A&Ox3, NAD Unlabored resp on RA ABD: Obese, distended with mild TTP throughout appropriate to status. Incisions c/d/i with drain output at 30cc overnight of SS discharge. LE: comapartments soft, supple and non-tender with +2 DP pulses Problem List - Problems (1) S/P laparoscopic cholecystectomy Assessment/Plan: POD #1 Laparoscopic Cholecystectomy (empyema) LFTs elevated. Patient stable and comfortable 1) f/u MRCP this morning, r/o gallstone in CBD 2) OOB with assist, ambulate and up to chair for meals, will mitigate gas. 3) Continue DVT prophylaxis with SQ heparin TID 4) IV ABX per ID Code(s): Z90.49 - ACQUIRED ABSENCE OF OTHER SPECIFIED PARTS OF DIGESTIVE TRACT
[2018-03-22] MEDS: metFORMIN HCL 500 MG TABLET (FP) PO SCH ×2 (09:32→22:15)
[2018-03-22] MEDS: ASPIRIN COATED 81 MG TABLET.EC PO SCH (09:32)
[2018-03-22] MEDS: PIPERACILLIN/TAZOB 3.375 GM 3.375 GM in DEXTROSE 5%-WATER - 50 ML IVPB SCH ×2 (09:33→17:23)
[2018-03-22] MEDS: TAMSULOSIN HCL 0.4 MG CAP PO SCH (09:33)
[2018-03-22] MEDS: HYDROXYUREA 500 MG CAPSULE PO SCH (09:33)
[2018-03-22] MEDS: amLODIPine BESYLATE 5 MG TABLET (FP) PO SCH (09:33)
[2018-03-22] MEDS ORDERED: PIPERACILLIN/TAZOB 3.375 GM 3.375 GM in DEXTROSE 5%-WATER - 50 ML IVPB SCH (10:00)
[2018-03-22] MEDS ORDERED: VANCOMYCIN 1 GM in D5W (PRE-DOCKED) 1,000 MG/250 ML IVPB SCH (10:00)
[2018-03-22] MEDS ORDERED: PATIENT'S OWN MEDICATION (NON-FORMULARY) (Linaclotide [Linzess] 72 MCG) PO SCH (10:00)
[2018-03-22 10:52] LABS: ANISOCYTOSIS 0; MACROCYTOSIS 0; PLATELET ESTIMATE NORMAL
--- NOTE | 2018-03-22 14:06 | PN ---
Progress Note, Physician History of Present Illness: patient post op says the pain has improved drain in place - Current Medication List Current Medications: Active Medications Acetaminophen (Tylenol -) 650 mg PO Q6H PRN PRN Reason: FEVER Amlodipine Besylate (Norvasc -) 5 mg PO DAILY [facility] Last Admin: 03/22/18 09:33 Dose: 5 mg Aspirin (Ecotrin -) 81 mg PO DAILY [facility] Last Admin: 03/22/18 09:32 Dose: 81 mg Heparin Sodium (Porcine) (Heparin -) 5,000 unit SQ TID [facility] Last Admin: 03/22/18 06:15 Dose: Not Given Hydroxyurea (Hydrea -) 500 mg PO DAILY [facility] Last Admin: 03/22/18 09:33 Dose: 500 mg Lactated Ringer's (Lactated Ringers Solution) 1,000 mls @ 100 mls/hr IV ASDIR [facility] Last Admin: 03/22/18 06:47 Dose: 100 mls/hr Piperacillin Sod/Tazobactam (Sod 3.375 gm/ Dextrose) 50 mls @ 100 mls/hr IVPB Q8H-IV [facility]; Protocol Last Admin: 03/22/18 09:33 Dose: 100 mls/hr Insulin Aspart (Novolog Vial Sliding Scale -) 1 vial SQ ACHS [facility]; Protocol Last Admin: 03/22/18 11:57 Dose: 4 units Metformin HCl (Glucophage -) 500 mg PO BID [facility] Last Admin: 03/22/18 09:32 Dose: 500 mg Morphine Sulfate (Morphine Sulfate) 2 mg IVPUSH Q6H PRN PRN Reason: breakthrough Non-Formulary Medication (Linaclotide [Linzess]) 72 mcg PO DAILY [facility] Ondansetron HCl (Zofran Injection) 4 mg IVPUSH Q6H PRN PRN Reason: NAUSEA AND/OR VOMITING Oxycodone HCl (Roxicodone -) 5 mg PO Q4H PRN PRN Reason: PAIN LEVEL 1-5 Oxycodone HCl (Roxicodone -) 10 mg PO Q4H PRN PRN Reason: PAIN LEVEL 6-10 Tamsulosin HCl (Flomax -) 0.4 mg PO DAILY@0830 [facility] Last Admin: 03/22/18 09:33 Dose: 0.4 mg - Objective Vital Signs: Vital Signs Temperature 98.0 F 03/22/18 10:00 Pulse Rate 83 03/22/18 10:00 Respiratory Rate 20 03/22/18 10:00 Blood Pressure 143/70 03/22/18 10:00 O2 Sat by Pulse Oximetry (%) 93 L 03/21/18 21:00 Constitutional: Yes: No Distress, Calm Cardiovascular: Yes: Regular Rate and Rhythm Respiratory: Yes: Regular, CTA Bilaterally Gastrointestinal: Yes: Soft, Hypoactive Bowel Sounds Musculoskeletal: Yes: WNL Extremities: Yes: WNL Neurological: Yes: Alert, Oriented Psychiatric: Yes: Alert, Oriented Labs: CBC, BMP 03/22/18 06:30 03/22/18 06:30 INR, PTT INR 1.23 (0.83-1.09) H 03/20/18 16:00 Assessment/Plan Problem List - Problems (1) Abdominal pain Code(s): R10.9 - UNSPECIFIED ABDOMINAL PAIN Qualifiers: Abdominal location: right upper quadrant Qualified Code(s): R10.11 - Right upper quadrant pain (2) Diabetes Code(s): E11.9 - TYPE 2 DIABETES MELLITUS WITHOUT COMPLICATIONS Qualifiers: Diabetes mellitus type: type 2 Diabetes mellitus complication status: without complication (3) HTN (hypertension) Code(s): I10 - ESSENTIAL (PRIMARY) HYPERTENSION Qualifiers: Hypertension type: essential hypertension Qualified Code(s): I10 - Essential (primary) hypertension (4) BPH (benign prostatic hyperplasia) Code(s): N40.0 - BENIGN PROSTATIC HYPERPLASIA WITHOUT LOWER URINRY TRACT SYMP (5) S/P laparoscopic cholecystectomy Code(s): Z90.49 - ACQUIRED ABSENCE OF OTHER SPECIFIED PARTS OF DIGESTIVE TRACT plan continue abx await for further work up op note noted await for cx reports rest as per the team
--- NOTE | 2018-03-22 15:23 | CONSULT ---
Consult Consult Specialty:: Hematology-Oncology Referred by:: Dr. Zamora Reason for Consultation:: History of Myeloproliferative disorder on hydrea - History of Present Illness Chief Complaint: Mid-epigastric pain with nausea and emesis. Dx acute cholecystitis - History Source History Provided By: Patient, Medical Record Limitations to Obtaining History: No Limitations - Past Medical History Cardio/Vascular: Yes: HTN Pulmonary: No: Asthma, Bronchitis, Cancer, COPD, O2 Dependent, Pneumonia, Previously Intubated, Pulmonary Embolus, Pulmonary Fibrosis, Sleep Apnea, Other Gastrointestinal: No: Ascites, Cancer, Constipation, Crohn's Disease, Diverticulitis, Diverticulosis, Esophageal Varices, Gastritis, GERD, GI Bleed, Hemorrhoids, Hiatal Hernia, Inflamatory Bowel Disease, Irritable Bowel Disease, Pancreatitis, Peptic Ulcer Disease, Ulcerative Colitis, Other Hepatobiliary: No: Cirrhosis, Cholelithiasis, Cholecystitis, Choledocholithiasis , Hepatitis A, Hepatitis B, Hepatitis C, Other Renal/: No: Renal Failure, Renal Inusuff, BPH, Cancer, Hematuria, Hemodialysis , Neurogenic Bladder, Renal Calculi, UTI, Other Heme/Onc: Yes: 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.) Infectious Disease: No: AIDS, C-Diff, Herpes Zoster, HIV, MRSA, STD's, Tuberculosis, VREF, Other Psych: No: Addictions, Anxiety, Bipolar, Depression, Panic, Psychosis, Schizophrenia, Other Musculoskeletal: No: Bursitis, Chronic low back pain, Hemiparesis, Hemiplegia, Osteoarthritis, Paraplegia, Other ENT: No: Allergic Rhinitis, Sinusitis, Other Endocrine: Yes: Diabetes Mellitus - Alcohol/Substance Use Hx Alcohol Use: Yes (OCCASIONALLY) - Smoking History Smoking history: Unknown if ever smoked Have you smoked in the past 12 months: No - Social History History of Recent Travel: No Home Medications - Allergies Allergies/Adverse Reactions: Allergies Allergy/AdvReac Type Severity Reaction Status Date / Time No Known Drug Allergies Allergy Verified 10/12/11 14:45 - Home Medications Home Medications: Ambulatory Orders Aspirin Coated [Ecotrin -] 81 mg PO DAILY 09/28/11 Amlodipine Besylate 5 mg PO DAILY 04/18/14 Hydroxyurea 500 mg PO DAILY 04/18/14 Linaclotide [Linzess] 72 mcg PO DAILY 03/20/18 Metformin HCl [Glucophage] 500 mg PO BID 03/20/18 Tamsulosin HCl [Flomax] 0.4 mg PO DAILY 03/20/18 Family Disease History - Family Disease History Family Disease History: Heart Disease: Mother, Other: Father (stroke ) Review of Systems - Review of Systems Constitutional: reports: Loss of Appetite Eyes: reports: Other (wears glasses). denies: Double Vision, Eye Pain HENT: denies: Difficult Swallowing, Epistaxis, Nasal Congestion, Throat Pain Neck: denies: Decreased ROM, Lumps, Pain on Movement, Stiffness, Swollen Glands Cardiovascular: denies: Chest Pain, Shortness of Breath Respiratory: denies: Exercise Intolerance, SOB, SOB on Exertion Gastrointestinal: reports: Abdominal Pain, Bloating, Constipation, Nausea, Vomiting. denies: Vomiting Blood Genitourinary: denies: Dysuria, Frequency Musculoskeletal: denies: Back Pain Integumentary: denies: Erythema, Pruritis Neurological: reports: No Symptoms, Seizure Hematology/Lymphatic: denies: Easily Bruised, Excessive Bleeding, Swollen Glands Psychiatric: reports: No Symptoms Physical Exam Vital Signs: Vital Signs Temperature 97.9 F 03/22/18 14:52 Pulse Rate 82 03/22/18 14:52 Respiratory Rate 20 03/22/18 14:52 Blood Pressure 138/72 03/22/18 14:52 O2 Sat by Pulse Oximetry (%) 93 L 03/21/18 21:00 Constitutional: Yes: Mild Distress Eyes: Yes: PERRL. No: Diplopia, Ptosis, Sclera Icterus HENT: Yes: Atraumatic, Normocephalic, Other (dentulous). No: Epistaxis, Hoarseness, Thrush, Tonsillar Exudate Neck: Yes: Supple, Trachea Midline. No: Lymphadenopathy, Tenderness, Thyromegaly Cardiovascular: Yes: Regular Rate and Rhythm Respiratory: Yes: Diminished Gastrointestinal: Yes: Distention, Other (s/p surgery ;J-P drain). No: Hepatomegaly, Rectal Bleeding, Splenomegaly, Tenderness Renal/: No: CVA Tenderness - Left, CVA Tenderness - Right Musculoskeletal: No: Back Pain Extremities: No: Calf Tenderness, Cyanosis Edema: No Integumentary: No: Jaundice Wound/Incision: Yes: Clean/Dry Neurological: Yes: WNL ...Motor Strength: WNL Psychiatric: Yes: WNL Labs: CBC, BMP 03/22/18 06:30 03/22/18 06:30 Problem List - Problems (1) S/P laparoscopic cholecystectomy Assessment/Plan: Day1 post op For MRI to evaluate for stones; Constipated with abdominal distension Code(s): Z90.49 - ACQUIRED ABSENCE OF OTHER SPECIFIED PARTS OF DIGESTIVE TRACT (2) Thrombocytosis Assessment/Plan: Patient with increased risk of thrombotic events in light of age ( > 60) and BRISA -2 positivity , and s/p abdominal surgery. Would consider post hospital continuation of DVT prophylaxis for 2-4 weeks with lovenox. Continue with hydrea at 500 mg daily . Ideally platelets < 400K Code(s): D47.3 - ESSENTIAL (HEMORRHAGIC) THROMBOCYTHEMIA
[2018-03-22] MEDS ORDERED: MAGNESIUM HYDROX 2400MG/30ML ORAL SUSPENSION 30 ML CUP PO PRN (17:00)
[2018-03-22] MEDS ORDERED: BISACODYL 10 MG SUPP.RECT PR ONE (17:02)
[2018-03-22] MEDS ORDERED: DOCUSATE SODIUM 100 MG CAPSULE (FP) PO SCH (22:00)
--- NOTE | 2018-03-22 23:28 | PN ---
Progress Note, Physician History of Present Illness: Pt passing flatulence - Current Medication List Current Medications: Active Medications Acetaminophen (Tylenol -) 650 mg PO Q6H PRN PRN Reason: FEVER Amlodipine Besylate (Norvasc -) 5 mg PO DAILY [facility] Last Admin: 03/22/18 09:33 Dose: 5 mg Aspirin (Ecotrin -) 81 mg PO DAILY [facility] Last Admin: 03/22/18 09:32 Dose: 81 mg Heparin Sodium (Porcine) (Heparin -) 5,000 unit SQ TID [facility] Last Admin: 03/22/18 14:00 Dose: 5,000 unit Hydroxyurea (Hydrea -) 500 mg PO DAILY [facility] Last Admin: 03/22/18 09:33 Dose: 500 mg Lactated Ringer's (Lactated Ringers Solution) 1,000 mls @ 100 mls/hr IV ASDIR [facility] Last Admin: 03/22/18 06:47 Dose: 100 mls/hr Piperacillin Sod/Tazobactam (Sod 3.375 gm/ Dextrose) 50 mls @ 100 mls/hr IVPB Q8H-IV [facility]; Protocol Last Admin: 03/22/18 17:23 Dose: 100 mls/hr Insulin Aspart (Novolog Vial Sliding Scale -) 1 vial SQ ACHS [facility]; Protocol Last Admin: 03/22/18 17:23 Dose: 2 units Metformin HCl (Glucophage -) 500 mg PO BID [facility] Last Admin: 03/22/18 09:32 Dose: 500 mg Morphine Sulfate (Morphine Sulfate) 2 mg IVPUSH Q6H PRN PRN Reason: breakthrough Non-Formulary Medication (Linaclotide [Linzess]) 72 mcg PO DAILY [facility] Ondansetron HCl (Zofran Injection) 4 mg IVPUSH Q6H PRN PRN Reason: NAUSEA AND/OR VOMITING Oxycodone HCl (Roxicodone -) 5 mg PO Q4H PRN PRN Reason: PAIN LEVEL 1-5 Oxycodone HCl (Roxicodone -) 10 mg PO Q4H PRN PRN Reason: PAIN LEVEL 6-10 Tamsulosin HCl (Flomax -) 0.4 mg PO DAILY@0830 [facility] Last Admin: 03/22/18 09:33 Dose: 0.4 mg - Objective Vital Signs: Vital Signs Temperature 98.5 F 03/22/18 18:00 Pulse Rate 89 03/22/18 18:00 Respiratory Rate 20 03/22/18 18:00 Blood Pressure 145/68 03/22/18 18:00 O2 Sat by Pulse Oximetry (%) 94 L 03/22/18 09:00 HENT: Yes: WNL Neck: Yes: WNL, Supple Cardiovascular: Yes: WNL, Regular Rate and Rhythm Respiratory: Yes: WNL, Regular, CTA Bilaterally Gastrointestinal: Yes: Normal Bowel Sounds, Soft, Other ((+) incisional tenderness on palpation (+) sangrinous drainage in FAWN tube) Labs: CBC, BMP 03/22/18 06:30 03/22/18 06:30 INR, PTT INR 1.23 (0.83-1.09) H 03/20/18 16:00 Problem List - Problems (1) Elevated LFTs Assessment/Plan: Check MRI abdomen Cont to trend LFT's Code(s): R94.5 - ABNORMAL RESULTS OF LIVER FUNCTION STUDIES (2) Abdominal pain Assessment/Plan: Due to acute cholecystitis S/P lap choley Cont IV zosyn WBC slowly decreasing Advance diet as per surgery Follow BC Code(s): R10.9 - UNSPECIFIED ABDOMINAL PAIN Qualifiers: Abdominal location: right upper quadrant Qualified Code(s): R10.11 - Right upper quadrant pain (3) Diabetes Assessment/Plan: Cont sliding scale w/ coverage Code(s): E11.9 - TYPE 2 DIABETES MELLITUS WITHOUT COMPLICATIONS Qualifiers: Diabetes mellitus type: type 2 Diabetes mellitus complication status: without complication (4) Thrombocytosis Assessment/Plan: Cont hydroxyurea Cont AC w/ lovenox for 2-4 weeks post-op as per heme Code(s): D47.3 - ESSENTIAL (HEMORRHAGIC) THROMBOCYTHEMIA (5) HTN (hypertension) Assessment/Plan: Cont norvasc Code(s): I10 - ESSENTIAL (PRIMARY) HYPERTENSION Qualifiers: Hypertension type: essential hypertension Qualified Code(s): I10 - Essential (primary) hypertension (6) BPH (benign prostatic hyperplasia) Assessment/Plan: Cont flomax Code(s): N40.0 - BENIGN PROSTATIC HYPERPLASIA WITHOUT LOWER URINRY TRACT SYMP
[2018-03-23] MEDS ORDERED: PIPERACILLIN/TAZOBACTAM 3.375 GM VIAL IVPB ONE ×3 (00:43→17:28)
[2018-03-23] MEDS ORDERED: DEXTROSE 5%-WATER - 50 ML IVPB ONE ×3 (00:43→17:28)
[2018-03-23] MEDS: PIPERACILLIN/TAZOB 3.375 GM 3.375 GM in DEXTROSE 5%-WATER - 50 ML IVPB SCH ×3 (02:14→18:51)
[2018-03-23] MEDS: metFORMIN HCL 500 MG TABLET (FP) PO SCH ×2 (06:34→17:46)
[2018-03-23] MEDS: INSULIN SLIDING SCALE (NOVOLOG) 1 VIAL SQ SCH ×4 (06:37→21:57)
[2018-03-23 07:46] LABS: BASO % 0.1 % (0-2.0); EOS % 0.5 % (0-4.5); HEMATOCRIT 37.2 % (35.4-49); HEMOGLOBIN 12.3 GM/dL (11.7-16.9); LYMPH % 5.2 % (8-40); MCH 27.2 pg (25.7-33.7); MCHC 33.2 g/dl (32.0-35.9); MONO % 10.8 % (3.8-10.2); NEUT % 83.4 % (42.8-82.8); PLATELET COUNT 600 K/MM3 (134-434); RBC 4.53 M/mm3 (4.00-5.60); RDW 16.1 % (11.9-15.9)
[2018-03-23 08:16] LABS: ALBUMIN 2.5 g/dl (3.4-5.0); ALK PHOS 205 U/L (45-117); ANION GAP 5 MMOL/L (8-16); BLOOD UREA NITROGEN 12 mg/dL (7-18); CALCIUM 7.8 mg/dL (8.5-10.1); CHLORIDE 100 mmol/L (98-107); CO2 29 mmol/L (21-32); CREATININE 0.7 mg/dL (0.55-1.3); GLUCOSE,RANDOM 142 mg/dL (74-106); POTASSIUM 4.7 mmol/L (3.5-5.1); SGOT/AST 37 U/L (15-37); SGPT/ALT 94 U/L (13-61); SODIUM 134 mmol/L (136-145); TOT PROT 5.6 g/dl (6.4-8.2)
--- NOTE | 2018-03-23 08:26 | PN ---
Progress Note (short form) - Note Progress Note: surgery POD#2 laparoscopic cholecystectomy patient seen and examined at bedside. Patient is tolerating his clears but states he feels "full". He has been OOB to bathroom onlyt, he is voiding and passing gas but has not had a BM yet. pain is controlled. He denies any chest pain, SOB, N/V, fever or chills Vital Signs Temp 99.2 F 03/23/18 06:00 Pulse 81 03/23/18 06:00 Resp 20 03/23/18 06:00 BP 131/66 03/23/18 06:00 Pulse Ox 94 L 03/22/18 21:00 Intake & Output 03/22/18 03/22/18 03/23/18 11:59 23:59 11:59 Intake Total 1620 2050 Output Total 580 1370 15 Balance 1040 680 -15 Intake: IV 1000 1000 Lactated Ringers Solution 1000 1000 1,000 ml @ 100 mls/hr IV ASDIR JESSICA Rx#: [id number] IVPB 100 Oral 620 950 Output: Drainage 30 20 15 Right Abdomen 30 20 15 Urine 550 1350 Void 550 1350 Other: Voiding Method Toilet Toilet Toilet # Unmeasured Voids Void 1 1 2 Bowel Movement No No No CBC, BMP 03/23/18 06:40 03/23/18 06:40 PE: A&Ox3, NAD Unlabored resp on RA ABD: Obese, distended with mild TTP throughout appropriate to status. Incisions c/d/i with drain output at 30cc overnight of SS discharge. LE: comapartments soft, supple and non-tender with +2 DP pulses Problem List - Problems (1) S/P laparoscopic cholecystectomy Code(s): Z90.49 - ACQUIRED ABSENCE OF OTHER SPECIFIED PARTS OF DIGESTIVE TRACT
--- NOTE | 2018-03-23 08:44 | PN ---
Progress Note, Physician Chief Complaint: seen and examined No CP or SOB CXR yest no acute path - Current Medication List Current Medications: Active Medications Acetaminophen (Tylenol -) 650 mg PO Q6H PRN PRN Reason: FEVER Amlodipine Besylate (Norvasc -) 5 mg PO DAILY [facility] Last Admin: 03/22/18 09:33 Dose: 5 mg Aspirin (Ecotrin -) 81 mg PO DAILY [facility] Last Admin: 03/22/18 09:32 Dose: 81 mg Enoxaparin Sodium (Lovenox -) 40 mg SQ DAILY [facility] Hydroxyurea (Hydrea -) 500 mg PO DAILY [facility] Last Admin: 03/22/18 09:33 Dose: 500 mg Piperacillin Sod/Tazobactam (Sod 3.375 gm/ Dextrose) 50 mls @ 100 mls/hr IVPB Q8H-IV [facility]; Protocol Last Admin: 03/23/18 02:14 Dose: 100 mls/hr Insulin Aspart (Novolog Vial Sliding Scale -) 1 vial SQ ACHS [facility]; Protocol Last Admin: 03/23/18 06:37 Dose: Not Given Metformin HCl (Glucophage -) 500 mg PO BIDAC [facility] Last Admin: 03/23/18 06:34 Dose: 500 mg Morphine Sulfate (Morphine Sulfate) 2 mg IVPUSH Q6H PRN PRN Reason: breakthrough Non-Formulary Medication (Linaclotide [Linzess]) 72 mcg PO DAILY [facility] Ondansetron HCl (Zofran Injection) 4 mg IVPUSH Q6H PRN PRN Reason: NAUSEA AND/OR VOMITING Oxycodone HCl (Roxicodone -) 5 mg PO Q4H PRN PRN Reason: PAIN LEVEL 1-5 Oxycodone HCl (Roxicodone -) 10 mg PO Q4H PRN PRN Reason: PAIN LEVEL 6-10 Last Admin: 03/23/18 06:34 Dose: 10 mg Tamsulosin HCl (Flomax -) 0.4 mg PO DAILY@0830 [facility] Last Admin: 03/22/18 09:33 Dose: 0.4 mg - Objective Vital Signs: Vital Signs Temperature 99.2 F 03/23/18 06:00 Pulse Rate 81 03/23/18 06:00 Respiratory Rate 20 03/23/18 06:00 Blood Pressure 131/66 03/23/18 06:00 O2 Sat by Pulse Oximetry (%) 94 L 03/22/18 21:00 Constitutional: Yes: No Distress, Calm Eyes: Yes: Conjunctiva Clear Cardiovascular: Yes: Regular Rate and Rhythm Respiratory: Yes: CTA Bilaterally Gastrointestinal: Yes: Soft (mildly distended, drain in place, no rebound or guarding) Edema: No Neurological: Yes: Alert, Oriented Labs: CBC, BMP 03/23/18 06:40 03/23/18 06:40 INR, PTT INR 1.23 (0.83-1.09) H 03/20/18 16:00 Problem List - Problems (1) Diabetes Code(s): E11.9 - TYPE 2 DIABETES MELLITUS WITHOUT COMPLICATIONS Qualifiers: Diabetes mellitus type: type 2 Diabetes mellitus complication status: without complication (2) Cholecystitis Code(s): K81.9 - CHOLECYSTITIS, UNSPECIFIED (3) Thrombocytosis Code(s): D47.3 - ESSENTIAL (HEMORRHAGIC) THROMBOCYTHEMIA (4) ASHD (arteriosclerotic heart disease) Code(s): I25.10 - ATHSCL HEART DISEASE OF [place] CORONARY ARTERY W/O ANG PCTRS (5) Abdominal pain Code(s): R10.9 - UNSPECIFIED ABDOMINAL PAIN Qualifiers: Abdominal location: right upper quadrant Qualified Code(s): R10.11 - Right upper quadrant pain (6) HTN (hypertension) Code(s): I10 - ESSENTIAL (PRIMARY) HYPERTENSION Qualifiers: Hypertension type: essential hypertension Qualified Code(s): I10 - Essential (primary) hypertension Assessment/Plan IMP: Abdominal pain, fever, imaging c/w acute cholecystitis s/p lap sonia POD #2 DM Chronic thrombocytosis ASHD HTN REC: Tolerated surgery well. No cardiac symptoms post op, controlled BP, remained in NSR and euvolemic. 1. ASA and Hydrea resumed. 2. DVT prophylaxis as per Heme reccs. Will sign off today. Please call again as/ if needed. Thank you.
[2018-03-23] MEDS ORDERED: MINERAL OIL ENEMA 133 ML ENEMA PR ONE (09:05)
--- NOTE | 2018-03-23 09:10 | PN ---
Progress Note, Physician Chief Complaint: POD # 2 C/O pain and adominal distention with constipation Denied N & V - Current Medication List Current Medications: Active Medications Acetaminophen (Tylenol -) 650 mg PO Q6H PRN PRN Reason: FEVER Amlodipine Besylate (Norvasc -) 5 mg PO DAILY [facility] Last Admin: 03/22/18 09:33 Dose: 5 mg Aspirin (Ecotrin -) 81 mg PO DAILY [facility] Last Admin: 03/22/18 09:32 Dose: 81 mg Enoxaparin Sodium (Lovenox -) 40 mg SQ DAILY [facility] Hydroxyurea (Hydrea -) 500 mg PO DAILY [facility] Last Admin: 03/22/18 09:33 Dose: 500 mg Piperacillin Sod/Tazobactam (Sod 3.375 gm/ Dextrose) 50 mls @ 100 mls/hr IVPB Q8H-IV [facility]; Protocol Last Admin: 03/23/18 02:14 Dose: 100 mls/hr Insulin Aspart (Novolog Vial Sliding Scale -) 1 vial SQ ACHS [facility]; Protocol Last Admin: 03/23/18 06:37 Dose: Not Given Metformin HCl (Glucophage -) 500 mg PO BIDAC [facility] Last Admin: 03/23/18 06:34 Dose: 500 mg Mineral Oil (Fleet Mineral Oil Rectal Enema -) 133 ml ND NOW ONE Stop: 03/23/18 09:06 Morphine Sulfate (Morphine Sulfate) 2 mg IVPUSH Q6H PRN PRN Reason: breakthrough Non-Formulary Medication (Linaclotide [Linzess]) 72 mcg PO DAILY [facility] Ondansetron HCl (Zofran Injection) 4 mg IVPUSH Q6H PRN PRN Reason: NAUSEA AND/OR VOMITING Oxycodone HCl (Roxicodone -) 5 mg PO Q4H PRN PRN Reason: PAIN LEVEL 1-5 Oxycodone HCl (Roxicodone -) 10 mg PO Q4H PRN PRN Reason: PAIN LEVEL 6-10 Last Admin: 03/23/18 06:34 Dose: 10 mg Tamsulosin HCl (Flomax -) 0.4 mg PO DAILY@0830 [facility] Last Admin: 03/22/18 09:33 Dose: 0.4 mg - Objective Vital Signs: Vital Signs Temperature 99.2 F 03/23/18 06:00 Pulse Rate 81 03/23/18 06:00 Respiratory Rate 20 01/31/19 06:00 Blood Pressure 131/66 03/23/18 06:00 O2 Sat by Pulse Oximetry (%) 94 L 03/22/18 21:00 Gastrointestinal: Yes: Soft, Tenderness (RUQ), Other (distended and tympanitic) Labs: CBC, BMP 03/23/18 06:40 03/23/18 06:40 INR, PTT INR 1.23 (0.83-1.09) H 03/20/18 16:00 Problem List - Problems (1) Cholecystitis Code(s): K81.9 - CHOLECYSTITIS, UNSPECIFIED (2) Cholecystitis Assessment/Plan: r/o choledocholithiasis MRCP today Fleet enema OOB, IS, DVT, GI PROPHYLAXIS Serial CBC'S and LFT'S Continue ANTIBIOTICS Code(s): K81.9 - CHOLECYSTITIS, UNSPECIFIED
[2018-03-23] MEDS: HYDROXYUREA 500 MG CAPSULE PO SCH (11:01)
[2018-03-23] MEDS: ASPIRIN COATED 81 MG TABLET.EC PO SCH (11:01)
[2018-03-23] MEDS: ENOXAPARIN NA (PORCINE) 40 MG/0.4 ML DISP.SYRIN SQ SCH (11:01)
[2018-03-23] MEDS: amLODIPine BESYLATE 5 MG TABLET (FP) PO SCH (11:01)
[2018-03-23] MEDS: TAMSULOSIN HCL 0.4 MG CAP PO SCH (11:01)
--- NOTE | 2018-03-23 13:16 | PN ---
Progress Note, Physician History of Present Illness: stable abd pain drain in place seen by surgery - Current Medication List Current Medications: Active Medications Acetaminophen (Tylenol -) 650 mg PO Q6H PRN PRN Reason: FEVER Amlodipine Besylate (Norvasc -) 5 mg PO DAILY [facility] Last Admin: 03/23/18 11:01 Dose: 5 mg Aspirin (Ecotrin -) 81 mg PO DAILY [facility] Last Admin: 03/23/18 11:01 Dose: 81 mg Enoxaparin Sodium (Lovenox -) 40 mg SQ DAILY [facility] Last Admin: 03/23/18 11:01 Dose: 40 mg Hydroxyurea (Hydrea -) 500 mg PO DAILY [facility] Last Admin: 03/23/18 11:01 Dose: 500 mg Piperacillin Sod/Tazobactam (Sod 3.375 gm/ Dextrose) 50 mls @ 100 mls/hr IVPB Q8H-IV [facility]; Protocol Last Admin: 03/23/18 11:00 Dose: 100 mls/hr Insulin Aspart (Novolog Vial Sliding Scale -) 1 vial SQ ACHS [facility]; Protocol Last Admin: 03/23/18 12:10 Dose: 4 units Metformin HCl (Glucophage -) 500 mg PO BIDAC [facility] Last Admin: 03/23/18 06:34 Dose: 500 mg Morphine Sulfate (Morphine Sulfate) 2 mg IVPUSH Q6H PRN PRN Reason: breakthrough Non-Formulary Medication (Linaclotide [Linzess]) 72 mcg PO DAILY [facility] Ondansetron HCl (Zofran Injection) 4 mg IVPUSH Q6H PRN PRN Reason: NAUSEA AND/OR VOMITING Oxycodone HCl (Roxicodone -) 5 mg PO Q4H PRN PRN Reason: PAIN LEVEL 1-5 Oxycodone HCl (Roxicodone -) 10 mg PO Q4H PRN PRN Reason: PAIN LEVEL 6-10 Last Admin: 03/23/18 06:34 Dose: 10 mg Tamsulosin HCl (Flomax -) 0.4 mg PO DAILY@0830 [facility] Last Admin: 03/23/18 11:01 Dose: 0.4 mg - Objective Vital Signs: Vital Signs Temperature 99.2 F 03/23/18 06:00 Pulse Rate 81 03/23/18 06:00 Respiratory Rate 20 03/23/18 06:00 Blood Pressure 131/66 03/23/18 06:00 O2 Sat by Pulse Oximetry (%) 94 L 03/22/18 21:00 Constitutional: Yes: Calm, Mild Distress, Obese Cardiovascular: Yes: Regular Rate and Rhythm Respiratory: Yes: Regular, CTA Bilaterally Gastrointestinal: Yes: Hypoactive Bowel Sounds, Other (drain in place) Musculoskeletal: Yes: WNL Extremities: Yes: WNL Neurological: Yes: Alert, Oriented Psychiatric: Yes: Alert, Oriented Labs: CBC, BMP 03/23/18 06:40 03/23/18 06:40 INR, PTT INR 1.23 (0.83-1.09) H 03/20/18 16:00 - ....Imaging MRI: Image Reviewed (awaiting official report) Assessment/Plan Problem List - Problems (1) Abdominal pain Code(s): R10.9 - UNSPECIFIED ABDOMINAL PAIN Qualifiers: Abdominal location: right upper quadrant Qualified Code(s): R10.11 - Right upper quadrant pain (2) Diabetes Code(s): E11.9 - TYPE 2 DIABETES MELLITUS WITHOUT COMPLICATIONS Qualifiers: Diabetes mellitus type: type 2 Diabetes mellitus complication status: without complication (3) HTN (hypertension) Code(s): I10 - ESSENTIAL (PRIMARY) HYPERTENSION Qualifiers: Hypertension type: essential hypertension Qualified Code(s): I10 - Essential (primary) hypertension (4) BPH (benign prostatic hyperplasia) Code(s): N40.0 - BENIGN PROSTATIC HYPERPLASIA WITHOUT LOWER URINRY TRACT SYMP (5) S/P laparoscopic cholecystectomy Code(s): Z90.49 - ACQUIRED ABSENCE OF OTHER SPECIFIED PARTS OF DIGESTIVE TRACT plan continue abx await for mri results images seen hydration monitor drainage rest as per the team
--- NOTE | 2018-03-23 17:55 | PN ---
Progress Note, Physician History of Present Illness: Pt w/ constipation - Current Medication List Current Medications: Active Medications Acetaminophen (Tylenol -) 650 mg PO Q6H PRN PRN Reason: FEVER Amlodipine Besylate (Norvasc -) 5 mg PO DAILY [facility] Last Admin: 03/23/18 11:01 Dose: 5 mg Aspirin (Ecotrin -) 81 mg PO DAILY [facility] Last Admin: 03/23/18 11:01 Dose: 81 mg Enoxaparin Sodium (Lovenox -) 40 mg SQ DAILY [facility] Last Admin: 03/23/18 11:01 Dose: 40 mg Hydroxyurea (Hydrea -) 500 mg PO DAILY [facility] Last Admin: 03/23/18 11:01 Dose: 500 mg Piperacillin Sod/Tazobactam (Sod 3.375 gm/ Dextrose) 50 mls @ 100 mls/hr IVPB Q8H-IV [facility]; Protocol Last Admin: 03/23/18 11:00 Dose: 100 mls/hr Insulin Aspart (Novolog Vial Sliding Scale -) 1 vial SQ ACHS [facility]; Protocol Last Admin: 03/23/18 17:48 Dose: Not Given Metformin HCl (Glucophage -) 500 mg PO BIDAC [facility] Last Admin: 03/23/18 17:46 Dose: 500 mg Morphine Sulfate (Morphine Sulfate) 2 mg IVPUSH Q6H PRN PRN Reason: breakthrough Non-Formulary Medication (Linaclotide [Linzess]) 72 mcg PO DAILY [facility] Ondansetron HCl (Zofran Injection) 4 mg IVPUSH Q6H PRN PRN Reason: NAUSEA AND/OR VOMITING Oxycodone HCl (Roxicodone -) 5 mg PO Q4H PRN PRN Reason: PAIN LEVEL 1-5 Oxycodone HCl (Roxicodone -) 10 mg PO Q4H PRN PRN Reason: PAIN LEVEL 6-10 Last Admin: 03/23/18 06:34 Dose: 10 mg Tamsulosin HCl (Flomax -) 0.4 mg PO DAILY@0830 [facility] Last Admin: 03/23/18 11:01 Dose: 0.4 mg - Objective Vital Signs: Vital Signs Temperature 97.6 F 03/23/18 14:25 Pulse Rate 87 03/23/18 14:25 Respiratory Rate 20 03/23/18 14:25 Blood Pressure 147/76 03/23/18 14:25 O2 Sat by Pulse Oximetry (%) 91 L 03/23/18 09:00 Neck: Yes: WNL, Supple Cardiovascular: Yes: WNL, Regular Rate and Rhythm Respiratory: Yes: WNL, Regular, CTA Bilaterally Gastrointestinal: Yes: Normal Bowel Sounds, Soft, Other ((+) FAWN drainage tube) Labs: CBC, BMP 03/23/18 06:40 03/23/18 06:40 INR, PTT INR 1.23 (0.83-1.09) H 03/20/18 16:00 Problem List - Problems (1) Elevated LFTs Assessment/Plan: LFT's are improving MRI abdomen showed: pleural effusion ?pericardial effusion ?consolidative changes ?colonic ileus Code(s): R94.5 - ABNORMAL RESULTS OF LIVER FUNCTION STUDIES (2) Abdominal pain Assessment/Plan: Due to acute cholecystitis S/P lap choley Cont IV zosyn WBC slowly decreasing Code(s): R10.9 - UNSPECIFIED ABDOMINAL PAIN Qualifiers: Abdominal location: right upper quadrant Qualified Code(s): R10.11 - Right upper quadrant pain (3) Diabetes Assessment/Plan: Cont sliding scale w/ coverage Code(s): E11.9 - TYPE 2 DIABETES MELLITUS WITHOUT COMPLICATIONS Qualifiers: Diabetes mellitus type: type 2 Diabetes mellitus complication status: without complication (4) Thrombocytosis Code(s): D47.3 - ESSENTIAL (HEMORRHAGIC) THROMBOCYTHEMIA (5) HTN (hypertension) Code(s): I10 - ESSENTIAL (PRIMARY) HYPERTENSION Qualifiers: Hypertension type: essential hypertension Qualified Code(s): I10 - Essential (primary) hypertension (6) BPH (benign prostatic hyperplasia) Code(s): N40.0 - BENIGN PROSTATIC HYPERPLASIA WITHOUT LOWER URINRY TRACT SYMP
--- NOTE | 2018-03-23 18:47 | PN ---
Progress Note (short form) - Note Progress Note: PAtient seen and examined on liquid diet colonic ileus AFVSS Cor: RSR, No murmurs, No gallops Lungs: Clear to P&A Abd: Soft, Normal bowel sounds, No organomegaly Ext:No significant edema Labs/Meds reviewed A/P 82 y/o patient with ET, on hydrea, a/w cholecystitis s/p cholecystectomy for gall bladder empyema Now with colonic ileus Thrombocytosis--worsening due to reactive compnenet continue hydrea continue asa DVT prophylaxis with lovenix follow clinical course
[2018-03-24] MEDS ORDERED: PIPERACILLIN/TAZOBACTAM 3.375 GM VIAL IVPB ONE ×3 (01:52→16:12)
[2018-03-24] MEDS ORDERED: DEXTROSE 5%-WATER - 50 ML IVPB ONE ×3 (01:52→16:12)
[2018-03-24] MEDS: PIPERACILLIN/TAZOB 3.375 GM 3.375 GM in DEXTROSE 5%-WATER - 50 ML IVPB SCH ×3 (02:39→17:33)
[2018-03-24] MEDS: metFORMIN HCL 500 MG TABLET (FP) PO SCH ×2 (06:41→16:44)
[2018-03-24] MEDS: INSULIN SLIDING SCALE (NOVOLOG) 1 VIAL SQ SCH ×4 (06:41→21:20)
[2018-03-24] MEDS ORDERED: INSULIN (NOVOLOG) ASPART 100 UNITS/ML 10ML VIAL ONE (06:46)
--- NOTE | 2018-03-24 09:36 | PN ---
Progress Note (short form) - Note Progress Note: 82yo M s/p lap sonia. Pt seen and examined at bedside. Pt complains of nausea and had small amount of vomiting this morning. Pt denies fever, chills. Complains of continued RUQ pain. Had MRCP yesterday with no signs of choledocolithiasis. Pt states that he is passing flatus. Last Vital Signs Temp Pulse Resp BP Pulse Ox 98.0 F 80 20 134/69 92 L 03/24/18 09:04 03/24/18 09:04 03/24/18 09:04 03/24/18 09:04 03/24/18 09:00 CBC, BMP 03/23/18 06:40 PE: Gen: A&O X3 Resp: breathing comfortably Abd: soft, mild distension, RUQ tenderness, incisions clean with no erythema, drain in place with serous drainage. Problem List - Problems (1) Cholecystitis Assessment/Plan: Plan -pt appears to have ilieus, but is most likely resolving as he is passing flatus -will order another enema -encourage OOB/ambulate -continue clears. Code(s): K81.9 - CHOLECYSTITIS, UNSPECIFIED
[2018-03-24] MEDS: ASPIRIN COATED 81 MG TABLET.EC PO SCH (09:45)
[2018-03-24] MEDS: HYDROXYUREA 500 MG CAPSULE PO SCH (09:45)
[2018-03-24] MEDS: TAMSULOSIN HCL 0.4 MG CAP PO SCH (09:45)
[2018-03-24] MEDS: amLODIPine BESYLATE 5 MG TABLET (FP) PO SCH (09:45)
[2018-03-24] MEDS: ENOXAPARIN NA (PORCINE) 40 MG/0.4 ML DISP.SYRIN SQ SCH (09:45)
[2018-03-24 10:05] LABS: ANION GAP 6 MMOL/L (8-16); BLOOD UREA NITROGEN 8 mg/dL (7-18); CALCIUM 8.6 mg/dL (8.5-10.1); CHLORIDE 99 mmol/L (98-107); CO2 31 mmol/L (21-32); CREATININE 0.8 mg/dL (0.55-1.3); GLUCOSE,RANDOM 199 mg/dL (74-106); POTASSIUM 4.6 mmol/L (3.5-5.1); SODIUM 135 mmol/L (136-145)
[2018-03-24] MEDS ORDERED: SODIUM PHOSPHATE/NA BIPHOS 133 ML ENEMA PR ONE (10:07)
[2018-03-24 12:40] LABS: EOS % 6.1 % (0-4.5); HEMATOCRIT 41.5 % (35.4-49); HEMOGLOBIN 13.7 GM/dL (11.7-16.9); LYMPH % 9.4 % (8-40); MCH 27.6 pg (25.7-33.7); MCHC 33.1 g/dl (32.0-35.9); MEAN CELL VOLUME 83.4 fl (80-96); MEAN PLT VOLUME 8.9 fl (7.5-11.1); MONO % 10.6 % (3.8-10.2); NEUT % 72.9 % (42.8-82.8); PLATELET COUNT 726 K/MM3 (134-434); RBC 4.98 M/mm3 (4.00-5.60); RDW 16.6 % (11.9-15.9); WHITE BLOOD COUNT 11.4 K/mm3 (4.0-10.0)
[2018-03-24 12:56] LABS: ALBUMIN 2.7 g/dl (3.4-5.0); ALK PHOS 170 U/L (45-117); BILIRUBIN,DIRECT 0.5 mg/dL (0.0-0.2); BILIRUBIN,TOTAL 1.1 mg/dL (0.2-1); SGOT/AST 20 U/L (15-37); SGPT/ALT 73 U/L (13-61); TOT PROT 5.8 g/dl (6.4-8.2)
[2018-03-24 13:09] LABS: ANISOCYTOSIS 1+; OVALOCYTE 1+; PLATELET ESTIMATE INCREASED
--- NOTE | 2018-03-24 13:35 | PN ---
Progress Note, Physician - Current Medication List Current Medications: Active Medications Acetaminophen (Tylenol -) 650 mg PO Q6H PRN PRN Reason: FEVER Amlodipine Besylate (Norvasc -) 5 mg PO DAILY [facility] Last Admin: 03/24/18 09:45 Dose: 5 mg Aspirin (Ecotrin -) 81 mg PO DAILY [facility] Last Admin: 03/24/18 09:45 Dose: 81 mg Enoxaparin Sodium (Lovenox -) 40 mg SQ DAILY [facility] Last Admin: 03/24/18 09:45 Dose: 40 mg Hydroxyurea (Hydrea -) 500 mg PO DAILY [facility] Last Admin: 03/24/18 09:45 Dose: 500 mg Piperacillin Sod/Tazobactam (Sod 3.375 gm/ Dextrose) 50 mls @ 100 mls/hr IVPB Q8H-IV [facility]; Protocol Last Admin: 03/24/18 09:44 Dose: 100 mls/hr Insulin Aspart (Novolog Vial Sliding Scale -) 1 vial SQ ACHS [facility]; Protocol Last Admin: 03/24/18 11:23 Dose: Not Given Metformin HCl (Glucophage -) 500 mg PO BIDAC [facility] Last Admin: 03/24/18 06:41 Dose: 500 mg Morphine Sulfate (Morphine Sulfate) 2 mg IVPUSH Q6H PRN PRN Reason: breakthrough Non-Formulary Medication (Linaclotide [Linzess]) 72 mcg PO DAILY [facility] Ondansetron HCl (Zofran Injection) 4 mg IVPUSH Q6H PRN PRN Reason: NAUSEA AND/OR VOMITING Oxycodone HCl (Roxicodone -) 5 mg PO Q4H PRN PRN Reason: PAIN LEVEL 1-5 Oxycodone HCl (Roxicodone -) 10 mg PO Q4H PRN PRN Reason: PAIN LEVEL 6-10 Last Admin: 03/23/18 06:34 Dose: 10 mg Tamsulosin HCl (Flomax -) 0.4 mg PO DAILY@0830 [facility] Last Admin: 03/24/18 09:45 Dose: 0.4 mg - Objective Vital Signs: Vital Signs Temperature 98.0 F 03/24/18 09:04 Pulse Rate 80 03/24/18 09:04 Respiratory Rate 20 03/24/18 09:04 Blood Pressure 134/69 03/24/18 09:04 O2 Sat by Pulse Oximetry (%) 92 L 03/24/18 09:00 Labs: CBC, BMP 03/24/18 06:00 03/24/18 08:40 INR, PTT INR 1.23 (0.83-1.09) H 03/20/18 16:00
--- NOTE | 2018-03-24 17:37 | PN ---
Progress Note (short form) - Note Progress Note: Patient seen and examined No BM as yet Had enema S/P lap cholecystectomy Last Vital Signs Temp Pulse Resp BP Pulse Ox 98.0 F 78 20 136/67 92 L 03/24/18 14:43 03/24/18 14:43 03/24/18 14:43 03/24/18 14:43 03/24/18 09:00 HEENT: CHOCO, EOM Intact Cor: RSR, No murmurs, No gallops Lungs: Clear to P&A Abd: Soft, Normal bowel sounds, No organomegaly, mild distension Ext:No significant edema Skin: No rashes, Integument intact CBC, BMP 03/24/18 06:00 03/24/18 08:40 Current Medications Generic Name Dose Route Start Last Admin Trade Name Freq PRN Reason Stop Dose Admin Acetaminophen 650 mg 03/21/18 18:38 Tylenol - PO Q6H PRN FEVER Amlodipine Besylate 5 mg 03/22/18 10:00 03/24/18 09:45 Norvasc - PO 5 mg DAILY JESSICA Administration Aspirin 81 mg 03/22/18 10:00 03/24/18 09:45 Ecotrin - PO 81 mg DAILY JESSICA Administration Enoxaparin Sodium 40 mg 03/23/18 10:00 03/24/18 09:45 Lovenox - SQ 40 mg DAILY JESSICA Administration Hydroxyurea 500 mg 03/22/18 10:00 03/24/18 09:45 Hydrea - PO 500 mg DAILY JESSICA Administration Piperacillin Sod/Tazobactam 50 mls @ 100 mls/hr 03/22/18 10:00 03/24/18 17:33 Sod 3.375 gm/ Dextrose IVPB 100 mls/hr Q8H-IV JESSICA Administration Protocol Insulin Aspart 1 vial 03/21/18 22:00 03/24/18 16:43 Novolog Vial Sliding Scale - SQ 2 units ACHS JESSICA Administration Protocol Metformin HCl 500 mg 03/23/18 07:00 03/24/18 16:44 Glucophage - PO 500 mg BIDAC JESSICA Administration Morphine Sulfate 2 mg 03/21/18 18:25 Morphine Sulfate IVPUSH Q6H PRN breakthrough Non-Formulary Medication 72 mcg 03/22/18 10:00 Linaclotide [Linzess] PO DAILY JESSICA Ondansetron HCl 4 mg 03/21/18 18:25 Zofran Injection IVPUSH Q6H PRN NAUSEA AND/OR VOMITING Oxycodone HCl 5 mg 03/21/18 18:32 Roxicodone - PO Q4H PRN PAIN LEVEL 1-5 Oxycodone HCl 10 mg 03/21/18 18:32 03/23/18 06:34 Roxicodone - PO 10 mg Q4H PRN Administration PAIN LEVEL 6-10 Tamsulosin HCl 0.4 mg 03/22/18 08:30 03/24/18 09:45 Flomax - PO 0.4 mg DAILY@0830 JESSICA Administration Impression: MPD S/P cholecystectomy Thrombocytosis increased secondary to reactive changes Plan: Continue hydrea Continue with ASA and lovenox. Problem List - Problems (1) S/P laparoscopic cholecystectomy Code(s): Z90.49 - ACQUIRED ABSENCE OF OTHER SPECIFIED PARTS OF DIGESTIVE TRACT (2) Thrombocytosis Code(s): D47.3 - ESSENTIAL (HEMORRHAGIC) THROMBOCYTHEMIA
--- NOTE | 2018-03-24 17:54 | PATH ---
Surgical Pathology Report Patient Name: GABRIEL MORAN Med. Rec. #: [id number] /Age/Gender: 1935 (Age: 82) / M Account: [id number] Location: [address] [place] [address]/[facility] Taken: 03/21/2018 Received: 03/22/2018 Reported: 03/24/2018 Physicians: Diamond Garcia M.D. Specimen(s) Received GALLBLADDER Clinical History Cholecystitis Final Diagnosis GALLBLADDER, CHOLECYSTECTOMY: SEVERE ACUTE CHOLECYSTITIS WITH HEMORRHAGE AND ABSCESS FORMATION. CHOLELITHIASIS. Electronically Signed Marysol Rey M.D. Gross Description Received in formalin, labeled "gallbladder," is a 8.0 x 3.3 x 2.0 cm. gallbladder with a 0.2 cm. in length portion of cystic duct attached. The outer surface is hernandez-brown with a necrotic appearance and varies from smooth to shaggy. The lumen contains a 1.0 cm in greatest dimension brown, irregular cholelith. There is no bile present within the lumen. The mucosa is hernandez-brown with attached exudate. The wall of the gallbladder averages 0.2 cm. in thickness. [employer] sections are submitted in one cassette. 03/23/201803/23/2018
--- NOTE | 2018-03-24 19:20 | PN ---
Progress Note, Physician - Current Medication List Current Medications: Active Medications Acetaminophen (Tylenol -) 650 mg PO Q6H PRN PRN Reason: FEVER Amlodipine Besylate (Norvasc -) 5 mg PO DAILY [facility] Last Admin: 03/24/18 09:45 Dose: 5 mg Aspirin (Ecotrin -) 81 mg PO DAILY [facility] Last Admin: 03/24/18 09:45 Dose: 81 mg Enoxaparin Sodium (Lovenox -) 40 mg SQ DAILY [facility] Last Admin: 03/24/18 09:45 Dose: 40 mg Hydroxyurea (Hydrea -) 500 mg PO DAILY [facility] Last Admin: 03/24/18 09:45 Dose: 500 mg Piperacillin Sod/Tazobactam (Sod 3.375 gm/ Dextrose) 50 mls @ 100 mls/hr IVPB Q8H-IV [facility]; Protocol Last Admin: 03/24/18 17:33 Dose: 100 mls/hr Insulin Aspart (Novolog Vial Sliding Scale -) 1 vial SQ ACHS [facility]; Protocol Last Admin: 03/24/18 16:43 Dose: 2 units Metformin HCl (Glucophage -) 500 mg PO BIDAC [facility] Last Admin: 03/24/18 16:44 Dose: 500 mg Non-Formulary Medication (Linaclotide [Linzess]) 72 mcg PO DAILY [facility] Ondansetron HCl (Zofran Injection) 4 mg IVPUSH Q6H PRN PRN Reason: NAUSEA AND/OR VOMITING Tamsulosin HCl (Flomax -) 0.4 mg PO DAILY@0830 [facility] Last Admin: 03/24/18 09:45 Dose: 0.4 mg - Objective Vital Signs: Vital Signs Temperature 98.2 F 03/24/18 18:57 Pulse Rate 91 H 03/24/18 18:57 Respiratory Rate 19 03/24/18 18:57 Blood Pressure 158/83 03/24/18 18:57 O2 Sat by Pulse Oximetry (%) 92 L 03/24/18 09:00 Labs: CBC, BMP 03/24/18 06:00 03/24/18 08:40 INR, PTT INR 1.23 (0.83-1.09) H 03/20/18 16:00 Problem List - Problems (1) Elevated LFTs Code(s): R94.5 - ABNORMAL RESULTS OF LIVER FUNCTION STUDIES (2) Abdominal pain Code(s): R10.9 - UNSPECIFIED ABDOMINAL PAIN Qualifiers: Abdominal location: right upper quadrant Qualified Code(s): R10.11 - Right upper quadrant pain (3) Diabetes Code(s): E11.9 - TYPE 2 DIABETES MELLITUS WITHOUT COMPLICATIONS Qualifiers: Diabetes mellitus type: type 2 Diabetes mellitus complication status: without complication (4) Thrombocytosis Code(s): D47.3 - ESSENTIAL (HEMORRHAGIC) THROMBOCYTHEMIA (5) HTN (hypertension) Code(s): I10 - ESSENTIAL (PRIMARY) HYPERTENSION Qualifiers: Hypertension type: essential hypertension Qualified Code(s): I10 - Essential (primary) hypertension (6) BPH (benign prostatic hyperplasia) Code(s): N40.0 - BENIGN PROSTATIC HYPERPLASIA WITHOUT LOWER URINRY TRACT SYMP
[2018-03-25] MEDS ORDERED: PIPERACILLIN/TAZOBACTAM 3.375 GM VIAL IVPB ONE ×2 (01:16→09:07)
[2018-03-25] MEDS ORDERED: DEXTROSE 5%-WATER - 50 ML IVPB ONE ×2 (01:17→09:08)
[2018-03-25] MEDS: PIPERACILLIN/TAZOB 3.375 GM 3.375 GM in DEXTROSE 5%-WATER - 50 ML IVPB SCH ×2 (01:35→09:20)
[2018-03-25] MEDS: ACETAMINOPHEN 325 MG TABLET (FP) PO PRN (01:35)
[2018-03-25] MEDS: INSULIN SLIDING SCALE (NOVOLOG) 1 VIAL SQ SCH ×4 (06:07→22:07)
[2018-03-25] MEDS: DOCUSATE SODIUM 100 MG CAPSULE (FP) PO SCH ×4 (06:10→22:07)
[2018-03-25] MEDS: metFORMIN HCL 500 MG TABLET (FP) PO SCH ×2 (06:10→17:11)
[2018-03-25] MEDS: TAMSULOSIN HCL 0.4 MG CAP PO SCH (08:47)
[2018-03-25 08:59] LABS: EOS % 14.3 % (0-4.5); HEMOGLOBIN 11.8 GM/dL (11.7-16.9); MCH 27.5 pg (25.7-33.7); MCHC 33.6 g/dl (32.0-35.9); MEAN CELL VOLUME 81.9 fl (80-96); MEAN PLT VOLUME 8.6 fl (7.5-11.1); MONO % 12.3 % (3.8-10.2); NEUT % 64.4 % (42.8-82.8); PLATELET COUNT 597 K/MM3 (134-434); RBC 4.28 M/mm3 (4.00-5.60); RDW 16.2 % (11.9-15.9); WHITE BLOOD COUNT 8.6 K/mm3 (4.0-10.0)
[2018-03-25] MEDS: ENOXAPARIN NA (PORCINE) 40 MG/0.4 ML DISP.SYRIN SQ SCH (09:20)
[2018-03-25] MEDS: amLODIPine BESYLATE 5 MG TABLET (FP) PO SCH (09:20)
[2018-03-25] MEDS: ASPIRIN COATED 81 MG TABLET.EC PO SCH (09:20)
[2018-03-25] MEDS: POLYETHYLENE GLYCOL 3350 119 GM BTL PO SCH (09:22)
[2018-03-25] MEDS: HYDROXYUREA 500 MG CAPSULE PO SCH (09:22)
[2018-03-25 09:38] LABS: ALBUMIN 2.6 g/dl (3.4-5.0); ALK PHOS 138 U/L (45-117); ANION GAP 6 MMOL/L (8-16); BILIRUBIN,TOTAL 0.6 mg/dL (0.2-1); BLOOD UREA NITROGEN 6 mg/dL (7-18); CALCIUM 7.8 mg/dL (8.5-10.1); CHLORIDE 100 mmol/L (98-107); CO2 30 mmol/L (21-32); CREATININE 0.7 mg/dL (0.55-1.3); GLUCOSE,RANDOM 178 mg/dL (74-106); POTASSIUM 4.5 mmol/L (3.5-5.1); SGOT/AST 27 U/L (15-37); SGPT/ALT 60 U/L (13-61); SODIUM 136 mmol/L (136-145); TOT PROT 5.4 g/dl (6.4-8.2)
[2018-03-25 12:46] LABS: ANISOCYTOSIS 1+; MACROCYTOSIS 0; PLATELET ESTIMATE INCREASED
--- NOTE | 2018-03-25 14:31 | PN ---
Progress Note, Physician History of Present Illness: Pt seen and examined. Case d/w surgery. He is afebrile, denies abd pain and is having BMs. Diet being advanced. States he feels much better. - Current Medication List Current Medications: Active Medications Acetaminophen (Tylenol -) 650 mg PO Q6H PRN PRN Reason: FEVER Last Admin: 03/25/18 01:35 Dose: 650 mg Amlodipine Besylate (Norvasc -) 5 mg PO DAILY [facility] Last Admin: 03/25/18 09:20 Dose: 5 mg Aspirin (Ecotrin -) 81 mg PO DAILY [facility] Last Admin: 03/25/18 09:20 Dose: 81 mg Docusate Sodium (Colace -) 100 mg PO TID [facility] Last Admin: 03/25/18 14:16 Dose: Not Given Enoxaparin Sodium (Lovenox -) 40 mg SQ DAILY [facility] Last Admin: 03/25/18 09:20 Dose: 40 mg Hydroxyurea (Hydrea -) 500 mg PO DAILY [facility] Last Admin: 03/25/18 09:22 Dose: 500 mg Piperacillin Sod/Tazobactam (Sod 3.375 gm/ Dextrose) 50 mls @ 100 mls/hr IVPB Q8H-IV [facility]; Protocol Last Admin: 03/25/18 09:20 Dose: 100 mls/hr Insulin Aspart (Novolog Vial Sliding Scale -) 1 vial SQ ACHS [facility]; Protocol Last Admin: 03/25/18 11:34 Dose: 2 units Metformin HCl (Glucophage -) 500 mg PO BIDAC [facility] Last Admin: 03/25/18 06:10 Dose: 500 mg Non-Formulary Medication (Linaclotide [Linzess]) 72 mcg PO DAILY [facility] Ondansetron HCl (Zofran Injection) 4 mg IVPUSH Q6H PRN PRN Reason: NAUSEA AND/OR VOMITING Polyethylene Glycol (Miralax (For Daily Use) -) 17 gm PO DAILY [facility] Last Admin: 03/25/18 09:22 Dose: 17 gm Tamsulosin HCl (Flomax -) 0.4 mg PO DAILY@0830 [facility] Last Admin: 03/25/18 08:47 Dose: 0.4 mg - Objective Vital Signs: Vital Signs Temperature 98 F 03/25/18 09:05 Pulse Rate 76 03/25/18 09:05 Respiratory Rate 16 03/25/18 09:05 Blood Pressure 150/66 03/25/18 09:05 O2 Sat by Pulse Oximetry (%) 96 03/25/18 09:00 Constitutional: Yes: No Distress, Calm Cardiovascular: Yes: Regular Rate and Rhythm Respiratory: Yes: Regular Gastrointestinal: Yes: Normal Bowel Sounds, Soft Genitourinary: Yes: WNL Extremities: Yes: WNL Integumentary: Yes: WNL Neurological: Yes: Alert Labs: CBC, BMP 03/25/18 07:50 03/25/18 07:50 INR, PTT INR 1.23 (0.83-1.09) H 03/20/18 16:00 Microbiology 03/20/18 16:00 Blood - Peripheral Venous Blood Culture - Preliminary NO GROWTH OBTAINED AFTER 96 HOURS, INCUBATION TO CONTINUE FOR 1 DAYS. 03/20/18 16:00 Blood - Peripheral Venous Blood Culture - Preliminary NO GROWTH OBTAINED AFTER 96 HOURS, INCUBATION TO CONTINUE FOR 1 DAYS. 03/21/18 16:38 Body Fluid - Other Gram Stain - Final 03/21/18 16:38 Body Fluid - Other Body Fluid Culture - Final Escherichia Coli Enterococcus Faecium 03/21/18 16:38 Body Fluid - Other Anaerobic Culture - Final NO ANAEROBES WERE ISOLATED 03/20/18 13:10 Urine - Urine Clean Catch Urine Culture - Final Contaminated: Please Repeat - ....Imaging X-ray: Report Reviewed MRI: Report Reviewed Problem List - Problems (1) ASHD (arteriosclerotic heart disease) Code(s): I25.10 - ATHSCL HEART DISEASE OF [place] CORONARY ARTERY W/O ANG PCTRS (2) BPH (benign prostatic hyperplasia) Code(s): N40.0 - BENIGN PROSTATIC HYPERPLASIA WITHOUT LOWER URINRY TRACT SYMP (3) Cholecystitis Code(s): K81.9 - CHOLECYSTITIS, UNSPECIFIED (4) Diabetes Code(s): E11.9 - TYPE 2 DIABETES MELLITUS WITHOUT COMPLICATIONS Qualifiers: Diabetes mellitus type: type 2 Diabetes mellitus complication status: without complication (5) HTN (hypertension) Code(s): I10 - ESSENTIAL (PRIMARY) HYPERTENSION Qualifiers: Hypertension type: essential hypertension Qualified Code(s): I10 - Essential (primary) hypertension (6) S/P laparoscopic cholecystectomy Code(s): Z90.49 - ACQUIRED ABSENCE OF OTHER SPECIFIED PARTS OF DIGESTIVE TRACT Assessment/Plan Acute Cholecystitis GB Empyema s/p lap sonia -- labs, imaging results noted - no CBD stone noted -- leukocytosis resolved, afebrile, abd soft -- diet being advanced will switch to oral antibiotics, 9 more days Continue monitor Surgery following
--- NOTE | 2018-03-25 14:33 | PN ---
Progress Note, Physician Chief Complaint: POD # 4 Had multiple bm's today c/o mild xyphoid incisional pain denies RUQ pain - Current Medication List Current Medications: Active Medications Acetaminophen (Tylenol -) 650 mg PO Q6H PRN PRN Reason: FEVER Last Admin: 03/25/18 01:35 Dose: 650 mg Amlodipine Besylate (Norvasc -) 5 mg PO DAILY [facility] Last Admin: 03/25/18 09:20 Dose: 5 mg Aspirin (Ecotrin -) 81 mg PO DAILY [facility] Last Admin: 03/25/18 09:20 Dose: 81 mg Docusate Sodium (Colace -) 100 mg PO TID [facility] Last Admin: 03/25/18 14:16 Dose: Not Given Enoxaparin Sodium (Lovenox -) 40 mg SQ DAILY [facility] Last Admin: 03/25/18 09:20 Dose: 40 mg Hydroxyurea (Hydrea -) 500 mg PO DAILY [facility] Last Admin: 03/25/18 09:22 Dose: 500 mg Piperacillin Sod/Tazobactam (Sod 3.375 gm/ Dextrose) 50 mls @ 100 mls/hr IVPB Q8H-IV [facility]; Protocol Last Admin: 03/25/18 09:20 Dose: 100 mls/hr Insulin Aspart (Novolog Vial Sliding Scale -) 1 vial SQ ACHS [facility]; Protocol Last Admin: 03/25/18 11:34 Dose: 2 units Metformin HCl (Glucophage -) 500 mg PO BIDAC [facility] Last Admin: 03/25/18 06:10 Dose: 500 mg Non-Formulary Medication (Linaclotide [Linzess]) 72 mcg PO DAILY [facility] Ondansetron HCl (Zofran Injection) 4 mg IVPUSH Q6H PRN PRN Reason: NAUSEA AND/OR VOMITING Polyethylene Glycol (Miralax (For Daily Use) -) 17 gm PO DAILY [facility] Last Admin: 03/25/18 09:22 Dose: 17 gm Tamsulosin HCl (Flomax -) 0.4 mg PO DAILY@0830 [facility] Last Admin: 03/25/18 08:47 Dose: 0.4 mg - Objective Vital Signs: Vital Signs Temperature 98 F 03/25/18 09:05 Pulse Rate 76 03/25/18 09:05 Respiratory Rate 16 03/25/18 09:05 Blood Pressure 150/66 03/25/18 09:05 O2 Sat by Pulse Oximetry (%) 96 03/25/18 09:00 Constitutional: Yes: No Distress Eyes: Yes: Conjunctiva Clear Gastrointestinal: Yes: Soft, Tenderness (minimal xyphoid port site, no RUQ tenderness), Other (MRCP - negative for choledocholithiasis) Labs: CBC, BMP 03/25/18 07:50 03/25/18 07:50 INR, PTT INR 1.23 (0.83-1.09) H 03/20/18 16:00 Problem List - Problems (1) Cholecystitis Assessment/Plan: Resolved ileus and sepsis Advance to regular diet antibiotic coverage per ID D/C planning from surgical standpoint Code(s): K81.9 - CHOLECYSTITIS, UNSPECIFIED (2) Cholecystitis Code(s): K81.9 - CHOLECYSTITIS, UNSPECIFIED
--- NOTE | 2018-03-25 16:39 | PN ---
Progress Note, Physician - Current Medication List Current Medications: Active Medications Acetaminophen (Tylenol -) 650 mg PO Q6H PRN PRN Reason: FEVER Last Admin: 03/25/18 01:35 Dose: 650 mg Amlodipine Besylate (Norvasc -) 5 mg PO DAILY [facility] Last Admin: 03/25/18 09:20 Dose: 5 mg Amoxicillin/Clavulanate Potassium (Augmentin - 875mg Tablet) 1 tab PO BID@0800, 1730 [facility] Aspirin (Ecotrin -) 81 mg PO DAILY [facility] Last Admin: 03/25/18 09:20 Dose: 81 mg Docusate Sodium (Colace -) 100 mg PO TID [facility] Last Admin: 03/25/18 14:16 Dose: Not Given Enoxaparin Sodium (Lovenox -) 40 mg SQ DAILY [facility] Last Admin: 03/25/18 09:20 Dose: 40 mg Hydroxyurea (Hydrea -) 500 mg PO DAILY [facility] Last Admin: 03/25/18 09:22 Dose: 500 mg Insulin Aspart (Novolog Vial Sliding Scale -) 1 vial SQ [facility]; Protocol Last Admin: 03/25/18 11:34 Dose: 2 units Metformin HCl (Glucophage -) 500 mg PO BIDAC [facility] Last Admin: 03/25/18 06:10 Dose: 500 mg Non-Formulary Medication (Linaclotide [Linzess]) 72 mcg PO DAILY [facility] Ondansetron HCl (Zofran Injection) 4 mg IVPUSH Q6H PRN PRN Reason: NAUSEA AND/OR VOMITING Polyethylene Glycol (Miralax (For Daily Use) -) 17 gm PO DAILY [facility] Last Admin: 03/25/18 09:22 Dose: 17 gm Tamsulosin HCl (Flomax -) 0.4 mg PO DAILY@0830 [facility] Last Admin: 03/25/18 08:47 Dose: 0.4 mg - Objective Vital Signs: Vital Signs Temperature 97.5 F L 03/25/18 14:35 Pulse Rate 81 03/25/18 14:35 Respiratory Rate 20 03/25/18 14:35 Blood Pressure 148/68 03/25/18 14:35 O2 Sat by Pulse Oximetry (%) 96 03/25/18 09:00 Labs: CBC, BMP 03/25/18 07:50 03/25/18 07:50 INR, PTT INR 1.23 (0.83-1.09) H 03/20/18 16:00 Problem List - Problems (1) Elevated LFTs Code(s): R94.5 - ABNORMAL RESULTS OF LIVER FUNCTION STUDIES (2) Abdominal pain Code(s): R10.9 - UNSPECIFIED ABDOMINAL PAIN Qualifiers: Abdominal location: right upper quadrant Qualified Code(s): R10.11 - Right upper quadrant pain (3) Diabetes Code(s): E11.9 - TYPE 2 DIABETES MELLITUS WITHOUT COMPLICATIONS Qualifiers: Diabetes mellitus type: type 2 Diabetes mellitus complication status: without complication (4) Thrombocytosis Code(s): D47.3 - ESSENTIAL (HEMORRHAGIC) THROMBOCYTHEMIA (5) HTN (hypertension) Code(s): I10 - ESSENTIAL (PRIMARY) HYPERTENSION Qualifiers: Hypertension type: essential hypertension Qualified Code(s): I10 - Essential (primary) hypertension (6) BPH (benign prostatic hyperplasia) Code(s): N40.0 - BENIGN PROSTATIC HYPERPLASIA WITHOUT LOWER URINRY TRACT SYMP
[2018-03-25] MEDS: AMOX TR/POT CLAV 875MG/125MG TABLETS (FP) PO SCH (17:11)
--- NOTE | 2018-03-25 17:24 | PN ---
Progress Note (short form) - Note Progress Note: Patient seen in follow up. No new complaints. No significant events overnight. Inpatient Meds reviewed. Acetaminophen (Tylenol -) 650 mg PO Q6H PRN PRN Reason: FEVER Last Admin: 03/25/18 01:35 Dose: 650 mg Amlodipine Besylate (Norvasc -) 5 mg PO DAILY [facility] Last Admin: 03/25/18 09:20 Dose: 5 mg Amoxicillin/Clavulanate Potassium (Augmentin - 875mg Tablet) 1 tab PO BID@0800, 1730 [facility] Last Admin: 03/25/18 17:11 Dose: 1 tab Aspirin (Ecotrin -) 81 mg PO DAILY [facility] Last Admin: 03/25/18 09:20 Dose: 81 mg Docusate Sodium (Colace -) 100 mg PO TID [facility] Last Admin: 03/25/18 14:16 Dose: Not Given Enoxaparin Sodium (Lovenox -) 40 mg SQ DAILY [facility] Last Admin: 03/25/18 09:20 Dose: 40 mg Hydroxyurea (Hydrea -) 500 mg PO DAILY [facility] Last Admin: 03/25/18 09:22 Dose: 500 mg Insulin Aspart (Novolog Vial Sliding Scale -) 1 vial SQ [facility]; Protocol Last Admin: 03/25/18 17:14 Dose: 4 units Metformin HCl (Glucophage -) 500 mg PO BIDAC [facility] Last Admin: 03/25/18 17:11 Dose: 500 mg Non-Formulary Medication (Linaclotide [Linzess]) 72 mcg PO DAILY [facility] Ondansetron HCl (Zofran Injection) 4 mg IVPUSH Q6H PRN PRN Reason: NAUSEA AND/OR VOMITING Polyethylene Glycol (Miralax (For Daily Use) -) 17 gm PO DAILY [facility] Last Admin: 03/25/18 09:22 Dose: 17 gm Tamsulosin HCl (Flomax -) 0.4 mg PO DAILY@0830 [facility] Last Admin: 03/25/18 08:47 Dose: 0.4 mg On Examination: Last Vital Signs Temp Pulse Resp BP Pulse Ox 97.5 F L 81 20 148/68 96 03/25/18 14:35 03/25/18 14:35 03/25/18 14:35 03/25/18 14:35 03/25/18 09:00 General: In no acute distress, lying comfortably in bed. Extremities: No pallor or icterus. No pedal edema. No palpable lymphadenopathy. CVS: S1, S2, regular, no gallop or murmur. Chest: good air entry bilaterally, clear Abdomen: Non-distended, non-tender, no palpable organomegaly. Neuro: Alert, oriented, non-focal. Labs: CBC, BMP 03/25/18 07:50 03/25/18 07:50 Assessment. 82 y/o patient with known ET, on HU - presently admitted with cholecystitis s/p cholecystectomy. Now with colonic ileus Exacerbation of thrombocytosis presently is reactive. Continue HU/ASA as before. Counts all down today - likely dilutional.
[2018-03-26] MEDS: ACETAMINOPHEN 325 MG TABLET (FP) PO PRN (05:20)
[2018-03-26] MEDS: DOCUSATE SODIUM 100 MG CAPSULE (FP) PO SCH ×2 (07:05→14:05)
[2018-03-26] MEDS: metFORMIN HCL 500 MG TABLET (FP) PO SCH (07:05)
[2018-03-26] MEDS: INSULIN SLIDING SCALE (NOVOLOG) 1 VIAL SQ SCH ×2 (07:06→11:23)
[2018-03-26] MEDS ORDERED: INSULIN (NOVOLOG) ASPART 100 UNITS/ML 10ML VIAL ONE (07:09)
[2018-03-26] MEDS: TAMSULOSIN HCL 0.4 MG CAP PO SCH (08:24)
[2018-03-26] MEDS: AMOX TR/POT CLAV 875MG/125MG TABLETS (FP) PO SCH (08:24)
[2018-03-26] MEDS: POLYETHYLENE GLYCOL 3350 119 GM BTL PO SCH (09:36)
[2018-03-26] MEDS: ENOXAPARIN NA (PORCINE) 40 MG/0.4 ML DISP.SYRIN SQ SCH (09:36)
[2018-03-26] MEDS: ASPIRIN COATED 81 MG TABLET.EC PO SCH (09:36)
[2018-03-26] MEDS: HYDROXYUREA 500 MG CAPSULE PO SCH (09:36)
[2018-03-26] MEDS: amLODIPine BESYLATE 5 MG TABLET (FP) PO SCH (09:36)
--- NOTE | 2018-03-26 15:11 | PN ---
Progress Note, Physician History of Present Illness: Pt is alert, tolerating regular diet. Minimal abd discomfort with palpation. Remains afebrile, without other specific complaints. - Current Medication List Current Medications: Active Medications Acetaminophen (Tylenol -) 650 mg PO Q6H PRN PRN Reason: FEVER Last Admin: 03/26/18 05:20 Dose: 650 mg Amlodipine Besylate (Norvasc -) 5 mg PO DAILY [facility] Last Admin: 03/26/18 09:36 Dose: 5 mg Amoxicillin/Clavulanate Potassium (Augmentin - 875mg Tablet) 1 tab PO BID@0800, 1730 [facility] Last Admin: 03/26/18 08:24 Dose: 1 tab Aspirin (Ecotrin -) 81 mg PO DAILY [facility] Last Admin: 03/26/18 09:36 Dose: 81 mg Docusate Sodium (Colace -) 100 mg PO TID [facility] Last Admin: 03/26/18 14:05 Dose: Not Given Enoxaparin Sodium (Lovenox -) 40 mg SQ DAILY [facility] Last Admin: 03/26/18 09:36 Dose: 40 mg Hydroxyurea (Hydrea -) 500 mg PO DAILY [facility] Last Admin: 03/26/18 09:36 Dose: 500 mg Insulin Aspart (Novolog Vial Sliding Scale -) 1 vial SQ ACHS [facility]; Protocol Last Admin: 03/26/18 11:23 Dose: Not Given Metformin HCl (Glucophage -) 500 mg PO BIDAC [facility] Last Admin: 03/26/18 07:05 Dose: 500 mg Ondansetron HCl (Zofran Injection) 4 mg IVPUSH Q6H PRN PRN Reason: NAUSEA AND/OR VOMITING Polyethylene Glycol (Miralax (For Daily Use) -) 17 gm PO DAILY [facility] Last Admin: 03/26/18 09:36 Dose: Not Given Tamsulosin HCl (Flomax -) 0.4 mg PO DAILY@0830 [facility] Last Admin: 03/26/18 08:24 Dose: 0.4 mg - Objective Vital Signs: Vital Signs Temperature 98.2 F 03/26/18 09:30 Pulse Rate 73 03/26/18 09:30 Respiratory Rate 20 03/26/18 09:30 Blood Pressure 135/69 03/26/18 09:30 O2 Sat by Pulse Oximetry (%) 95 03/26/18 09:00 Constitutional: Yes: No Distress, Calm Cardiovascular: Yes: Regular Rate and Rhythm Respiratory: Yes: Regular Gastrointestinal: Yes: Normal Bowel Sounds, Soft, Tenderness (minimal at incision site, no erythema/drainage) Edema: No Neurological: Yes: Alert, Oriented Labs: CBC, BMP 03/25/18 07:50 03/25/18 07:50 INR, PTT INR 1.23 (0.83-1.09) H 03/20/18 16:00 Problem List - Problems (1) ASHD (arteriosclerotic heart disease) Code(s): I25.10 - ATHSCL HEART DISEASE OF [place] CORONARY ARTERY W/O ANG PCTRS (2) BPH (benign prostatic hyperplasia) Code(s): N40.0 - BENIGN PROSTATIC HYPERPLASIA WITHOUT LOWER URINRY TRACT SYMP (3) Cholecystitis Code(s): K81.9 - CHOLECYSTITIS, UNSPECIFIED (4) Diabetes Code(s): E11.9 - TYPE 2 DIABETES MELLITUS WITHOUT COMPLICATIONS Qualifiers: Diabetes mellitus type: type 2 Diabetes mellitus complication status: without complication (5) HTN (hypertension) Code(s): I10 - ESSENTIAL (PRIMARY) HYPERTENSION Qualifiers: Hypertension type: essential hypertension Qualified Code(s): I10 - Essential (primary) hypertension (6) S/P laparoscopic cholecystectomy Code(s): Z90.49 - ACQUIRED ABSENCE OF OTHER SPECIFIED PARTS OF DIGESTIVE TRACT Assessment/Plan Acute Cholecystitis GB Empyema s/p lap sonia -- Pt tolerating advanced diet and having BMs -- suggest continue augmentin x 8 more days -- pt afebrile, leukocytosis resolve Instructed to seek medical attention if multiple loose BMs/diarrhea, fever, worsening abd pain noted
[2018-03-26 15:36] VITALS: BP 120/73; PULSE 80; TEMP 97.8
== END 2018-03-26 16:18 | disposition home health service (06) | DRG 418 ==
LOC: JER 12:20 → JERBED 16:13 → J5S 23:06
PROVIDERS: ADMIT Internal Medicine; ATTEND Internal Medicine
PROC: 0FT44ZZ Resection of Gallbladder, Percutaneous Endoscopic Approach (ICD-10-PCS; principal; 2018-03-21 14:00)
DX: K81.0 Acute cholecystitis (principal); K56.7 Ileus, unspecified; J98.11 Atelectasis; I10 Essential (primary) hypertension; E11.9 Type 2 diabetes mellitus without complications; N40.0 Benign prostatic hyperplasia without lower urinary tract symptoms; R94.5 Abnormal results of liver function studies; D47.3 Essential (hemorrhagic) thrombocythemia; I25.10 Atherosclerotic heart disease of native coronary artery without angina pectoris; R10.11 Right upper quadrant pain; D72.829 Elevated white blood cell count, unspecified
CPT/HCPCS: 36415; 71045-TC-FY; 74021-TC-FY; 74181-TC; 76705-TC; 80048; 80053; 80076; 81003; 81015; 82803; 82962; 83605; 83690; 83735; 84484; 85025; 85610; 85730; 86850; 86900; 86901; 87040; 87070; 87075; 87086; 87186; 87205; 88304-TC; 93005; 93010; 93306-TC; 94760; 99285-25; J0131; J1644; J7030; J8999

== ENCOUNTER 2020-11-22 12:56 | Emergency (ER) | payer BC ==
[2020-11-22 13:08] VITALS: BP 160/80; PULSE 94; TEMP 97.4; BMI 26.6
[2020-11-22 15:08] LABS: BASO % 1.1 % (0-2.0); EOS % 16.1 % (0-4.5); HEMATOCRIT 41.9 % (35.4-49); HEMOGLOBIN 13.9 GM/dL (11.7-16.9); LYMPH % 17.8 % (8-40); MCH 29.6 pg (25.7-33.7); MCHC 33.2 g/dl (32.0-35.9); MEAN CELL VOLUME 89.2 fl (80-96); MEAN PLT VOLUME 8.1 fl (7.5-11.1); MONO % 9.2 % (3.8-10.2); NEUT % 55.8 % (42.8-82.8); PLATELET COUNT 532 10^3/uL (134-434); RDW 15.3 % (11.9-15.9); WHITE BLOOD COUNT 8.1 K/mm3 (4.0-10.0)
[2020-11-22 16:48] LABS: BLOOD UREA NITROGEN 12.6 mg/dL (7-18); CALCIUM 9.3 mg/dL (8.5-10.1); CHLORIDE 102 mmol/L (98-107); CO2 30 mmol/L (21-32); CREATININE 0.8 mg/dL (0.55-1.3); GLUCOSE,RANDOM 140 mg/dL (74-106); SODIUM 131 mmol/L (136-145); TOT PROT 8.1 g/dl (6.4-8.2)
[2020-11-22 16:49] LABS: ALBUMIN 3.9 g/dl (3.4-5.0); ALK PHOS 81 U/L (45-117); BILIRUBIN,TOTAL 0.5 mg/dL (0.2-1); SGOT/AST 77 U/L (15-37); SGPT/ALT 36 U/L (13-61)
== END 2020-11-22 19:45 | disposition home or self-care (01) ==
LOC: JER 12:56
DX: T18.9XXA Foreign body of alimentary tract, part unspecified, initial encounter (principal)
CPT/HCPCS: 36415; 70491-TC; 80053; 84132; 85025; 99285-25; Q9967

== ENCOUNTER 2022-07-19 11:14 | Emergency (ER) | payer BC ==
[2022-07-19 11:32] VITALS: RESP 19; BMI 29.0
[2022-07-19 12:31] LABS: BASO % 0.6 % (0-2.0); EOS % 6.5 % (0-4.5); HEMOGLOBIN 13.3 GM/dL (11.7-16.9); LYMPH % 7.1 % (8-40); MCH 29.7 pg (25.7-33.7); MCHC 32.5 g/dl (32.0-35.9); MEAN CELL VOLUME 91.4 fl (80-96); MEAN PLT VOLUME 8.9 fl (7.5-11.1); MONO % 7.8 % (3.8-10.2); PLATELET COUNT 306 10^3/uL (134-434); RBC 4.49 M/mm3 (4.00-5.60); WHITE BLOOD COUNT 10.3 K/mm3 (4.0-10.0)
[2022-07-19 12:33] LABS: INR 1.08 (0.83-1.09); PROTHROMBIN TIME (PATIENT) 12.5 SEC (9.7-13.0)
[2022-07-19 12:35] LABS: ACTIVATED PTT 29.4 SECONDS (25.2-36.5)
[2022-07-19 12:48] LABS: CALCIUM 9.3 mg/dL (8.5-10.1)
[2022-07-19 12:49] LABS: ALBUMIN 4.1 g/dl (3.4-5.0); BLOOD UREA NITROGEN 9.9 mg/dL (7-18); MAGNESIUM 1.8 mg/dL (1.8-2.4)
[2022-07-19 12:52] LABS: CREATININE 0.8 mg/dL (0.55-1.3); PHOSPHOROUS 2.5 mg/dL (2.5-4.9)
[2022-07-19 12:54] LABS: BILIRUBIN,TOTAL 0.5 mg/dL (0.2-1); TOT PROT 7.4 g/dl (6.4-8.2)
[2022-07-19 13:57] LABS: EPI CELLS 2 /uL (0-25.1); HYALINE CASTS 0 /uL (0-3.1); PH,URINE 6.5 (5.0-8.0); URINE APPEARANCE CLEAR; URINE BACTERIA 2 /uL (0-1359); URINE BILIRUBIN NEGATIVE (NEGATIVE); URINE COLOR YELLOW; URINE GLUCOSE (UA) NEGATIVE (NEGATIVE); URINE KETONE TRACE (NEGATIVE); URINE LEUK ESTERASE NEGATIVE (NEGATIVE); URINE NITRITE NEGATIVE (NEGATIVE); URINE PROTEIN NEGATIVE (NEGATIVE); URINE RBC 15 /uL (0-23.9); URINE UROBILINOGEN 0.2 mg/dL (0.2-1.0); URINE WBC 1 /uL (0-25.8)
[2022-07-19] MEDS ORDERED: DIPHTH,PERTUSS(ACELL),TET 0.5 ML DISP.SYRIN IM ONE ×2 (14:04→14:08)
[2022-07-19] MEDS ORDERED: BACITRACIN 0.9 GM PACKET TP ONE (14:33)
[2022-07-19] MEDS ORDERED: BACITRACIN 0.9 GM PACKET ONE (14:34)
[2022-07-19 15:03] VITALS: BP 146/77; PULSE 89; TEMP 98.9
== END 2022-07-19 15:04 | disposition home or self-care (01) ==
LOC: JER 11:14
PROC: 3E0234Z Introduction of Serum, Toxoid and Vaccine into Muscle, Percutaneous Approach (ICD-10-PCS; principal; 2022-07-19)
DX: S10.91XA Abrasion of unspecified part of neck, initial encounter (principal); R53.1 Weakness; R00.0 Tachycardia, unspecified; S00.31XA Abrasion of nose, initial encounter; S60.512A Abrasion of left hand, initial encounter; W19.XXXA Unspecified fall, initial encounter; Y92.410 Unspecified street and highway as the place of occurrence of the external cause; Z20.822 Contact with and (suspected) exposure to COVID-19
CPT/HCPCS: 0241U-QW; 36415; 70450-TC; 71045-TC-FY; 72125-TC; 80053; 81003; 82962; 83735; 84100; 84484; 85025; 85610; 85730; 87086; 90471; 90715; 93005; 93010; 99285-25

== ENCOUNTER 2023-04-29 15:10 | Emergency (ER) | payer BC ==
[2023-04-29 15:21] VITALS: BP 146/63; PULSE 100; RESP 19; TEMP 98.6; BMI 25.2
[2023-04-29 17:27] LABS: EPI CELLS 3 /uL (0-25.1); HYALINE CASTS 17 /uL (0-3.1); PH,URINE 7.5 (5.0-8.0); URINE APPEARANCE CLOUDY; URINE BACTERIA >9,000 /uL (0-1359); URINE BILIRUBIN NEGATIVE (NEGATIVE); URINE COLOR YELLOW; URINE GLUCOSE (UA) 1+ (NEGATIVE); URINE KETONE TRACE (NEGATIVE); URINE LEUK ESTERASE 2+ (NEGATIVE); URINE NITRITE POSITIVE (NEGATIVE); URINE PROTEIN 2+ (NEGATIVE); URINE RBC 77 /uL (0-23.9); URINE WBC 949 /uL (0-25.8)
[2023-04-29] MEDS: CEFUROXIME AXETIL 500 MG TABLET PO STA (18:19)
== END 2023-04-29 18:23 | disposition home or self-care (01) ==
LOC: JER 15:10
DX: R31.9 Hematuria, unspecified (principal); N39.0 Urinary tract infection, site not specified; R35.0 Frequency of micturition; R30.0 Dysuria
CPT/HCPCS: 81003; 87086; 87186; 99283-25